=== PATIENT | female | born 1970 | race Caucasian/White ===

== ENCOUNTER → 2016-08-28 | Outpatient (CLI) | payer BC ==
--- NOTE | 2016-08-28 17:00 | RADRPT ---
PROCEDURE: Right knee radiographs. CLINICAL INDICATION: Right knee pain. TECHNIQUE: Three views. Weight bearing. Frontal, lateral, and patellar view. COMPARISON: No prior studies are available for comparison. FINDINGS: There is no fracture or dislocation. There is a joint effusion. There are degenerative changes with osteophytes arising from all 3 joint compartment margins. There is medial joint compartment narrowing and subarticular sclerosis. There is no lytic or blastic lesion. There is no radiopaque foreign body. IMPRESSION: 1. Joint effusion. 2. Moderate degenerative changes of the right knee. RPTAT: QQ .Boris Adorno MD, MD Date Time Electronically viewed and signed by .Boris Adorno MD, on 08/28/2016 16:59 .R/
--- NOTE | 2016-08-29 07:25 | HKNOTE ---
DATE OF SERVICE: 08/28/2016 MAIN COMPLAINT: Pain in the right knee. HISTORY OF MAIN COMPLAINT: The patient is a 46-year-old female who complains of pain in her right k nee. She has had the pain for more than a year. The pain has become increasingly severe. She is n ot able to walk more than a block or two without stopping. Two years ago, she was able to do a "5K. " The patient gets pain with every step that she takes. She was under the care of Dr. Ayleen Watts w brenda recommended a knee replacement operation. Indeed, the patient was scheduled to have a right knee replacement, but her PPO refused to allow her to have the surgery at the [facility]. She was given a list of orthopedic surgeons who work out of the [facility] and she has selected me. She has also seen my website. The patient has had 2 sets of viscous supplemental injections into her knee. She has declined to [place] ve cortisone injections. 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 It is described as being severe, is aggravated by walking, weightbearing or stair climbing. She gets some rest pain. Pain d oes not wake her up at night. She takes Anaprox and tramadol for the pain which "doesn't do much fo r me anymore." She has had a history of problems with her lower back. She had surgery to the lumba r spine as an outpatient about 1 year ago. She lost all sensation in her right leg as a result of t he surgery. The pain in her right leg also never resolved completely. She does, however, consider the operation a success in view of the fact that she has much less pain now. The patient does limp all the time. She does not have a shoe lift. She can clip her toenails and t ie her shoelaces. PAST ORTHOPEDIC HISTORY: Spine surgery as an outpatient 1 year ago. PRIOR CORTISONE INTAKE: None. ALCOHOL INTAKE: None. OTHER JOINT PROBLEMS: None. BLOOD TESTS FOR ARTHRITIS: None. PRIOR INJURIES TO HIPS OR KNEES: None. 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 Epilepsy. 2. Hypothyroid. PAST SURGICAL HISTORY: 1. Lumbar spine surgery 1 year ago (? doctor). 2. Partial gastrectomy 3 years ago for morbid obesity (the patient regained the weight). ALLERGIES: NONE. MEDICATIONS: 1. Tegretol 200 mg t.i.d. 2. Protonix 40 mg q. a.m. 3. Levothyroxine 112 mcg q. a.m. 4. Trintellix 20 mg daily for depression. 5. Seroquel 200 mg at bedtime for depression and sleep. 6. Prometrium 100 mg at bedtime for premenopausal symptoms. 7. Vitamin D 50,000 units a month. 8. Ativan 1 mg q. a.m. for anxiety. FAMILY HISTORY: Father age 64, alive and well. Mother at the age of 28, unstated cause. SYSTEMS REVIEW: Prone to severe headaches, failing vision, heartburn, occasional double vision, gai t disturbance from her knee pain. HABITS: Patient does not smoke or drink alcoholic beverages. TRAFFIC CIRCUIT ENGINEER: Dr. Pam Alegre, [place], [place]. PHYSICAL EXAMINATION: GENERAL: The patient is a youthful 46-year-old female who is markedly overweight. She has an antal gic gait, but she does not have a walking aid. VITAL SIGNS: Height 5 feet 2 inches, weight 250 pounds (patient states "probably more"). Blood pre ssure 130/60, temperature 98.7. BACK: Dynamic pain assessment reveals a pain free range of motion in flexion, extension, lateral be nding, and rotation. Inspection of the spine reveals no list. There is @@no lumbar paraspinal muscle spasm. The pelvis is level. Facet stress test is negative bilaterally. Palpation of the spine demon strates no tenderness of the spinous processes, facet joints, sacroiliac joint, sciatic notch, or po sterior thigh. HIPS: Both hips have a full range of motion without pain. RIGHT KNEE: The right knee shows normal alignment. Active and passive extension is 0 degrees. Flexi on lacks 25 degrees (marked pain on attempting further flexion) of the knee and the patella. T he medial and lateral collateral ligaments and cruciate ligaments are intact. Tereso test is negati ve. There is no effusion, tenderness, scarring, crepitus, or cysts. The patella tracks normally. The re is no tenderness on the articular surface of the patella or in the patellar groove. The Q angle i s normal. NEUROLOGIC: Motor examination reveals no muscle deficit in the lower extremities. Deep tendon refl exes are negative right knee, negative left knee, negative right ankle, negative left ankle. Straig ht leg raising is negative bilaterally at 80 degrees. Lasegue and CONNIE tests are negative. IMAGING: Plain x-rays of the right knee obtained today show marked narrowing of both medial and lat eral joint spaces. Patellofemoral joint is also markedly decreased. Osteophytes are present and burr bchondral sclerosis. DIAGNOSES: 1. Severe degenerative osteoarthritis of the right knee. 2. Epilepsy. 3. Morbid obesity. 4. Hypothyroid. 5. Status post lumbar spine surgery. 6. Residual pain in the right leg following spine surgery. MANAGEMENT: Patient comes in with a letter from Dr. Watts which appears to be his clinic notes for 07/19/2016. He indicates that the patient is impossible to fit for a knee brace, has grinding pain with range of motion of the right knee and "will be on the schedule for total knee arthroplasty in a couple of months." The operation of total knee replacement was discussed with the patient in a fair amount of detail in cluding showing her a model of the actual knee implants. The patient was given my manual titled "Arthritis of the Knee Joint" which contains information conc erning the various alternatives of treatment. It includes various forms of conservative treatment, i ncluding the use of nonsteroidal anti-inflammatory medications and their dangers. Various surgical a lternatives are discussed. The technique of total knee replacement is discussed in detail, including possible complications. Included also is a section on the possible complications of blood transfusi on, a section on postoperative precautions, and an exercise program to follow at home after total kn ee replacement. The long-term care of a total knee replacement implant is also covered in detail. Th e patient was instructed to read this manual in its entirety since it is, in and of itself, a form o f informed consent. After reading this manual, the patient will make a list of further questions inocencio t may not have been covered adequately. The patient was further advised that this manual, although e xhaustive in nature, is only intended to supplement and complement a one-on-one discussion with me. Patient has seen my website, [employer]. FINAL DIAGNOSES: 1. Severe degenerative osteoarthritis of the right knee. 2. Epilepsy. 3. Morbid obesity. 4. Hypothyroid. 5. Status post lumbar spine surgery. 6. Residual pain in the right leg following spine surgery. The patient will schedule her surgery with my seed analysis laboratory assistant, which will be performed in the relatively n ear future. Dictated By: CELESTE THOMAS/JUAN Conf#: [id number] DID#: [id number]
== END | disposition home or self-care (01) ==
LOC: HKI 15:52
DX: M17.11 Unilateral primary osteoarthritis, right knee (principal); G40.909 Epilepsy, unspecified, not intractable, without status epilepticus; E66.01 Morbid (severe) obesity due to excess calories; E03.9 Hypothyroidism, unspecified
CPT/HCPCS: 73562; G0463

== ENCOUNTER → 2016-09-12 | Outpatient (CLI) | payer BC ==
--- NOTE | 2016-09-12 17:46 | HKNOTE ---
DATE OF SERVICE: 09/12/2016 The patient comes in for preoperative evaluation. She is scheduled to have a right total knee repla cement on 09/17/2016. She has been cleared for surgery by Dr. Damon Yepez. Her x-rays were again reviewed. These show advanced degenerative osteoarthritis of the right knee w ith no remaining articular space, although there is not [id number] contact or osteophyte formation . Examination the right knee today reveals extension to be full. Flexion is to 95 degrees. The patie nt complains of pain on forced flexion of the knee. The patient is not able to walk more than 1-1/2 blocks at a time without stopping. She has read my booklet on knee arthritis and knee replacement surgery. She has been cleared by Ayanna Alegre in Dr. Yepez's office. Note that she had spinal surgery 1 year ago. Before the spine surgery, she had n umbness in her right leg, particularly concentrated over the anterior aspect of the right knee. Aft er the surgery, the numbness was gone, but she now had pain in that same distribution. The patient also indicates that she is allergic to cheap jewelry and can only wear jewelry that is s olid gold. Under sterile conditions, the patient was given an injection of 2 mL of 2% lidocaine into her right knee. Thereupon, she had absolutely no pain in the knee even on forceful flexion and the range of m otion improved to a point where flexion was to 120 degrees. MANAGEMENT: The patient is advised that she has a small chance that she may be allergic to the meta l components of the implant. There is not very much that we can do about that. She was offered the opportunity to cancel surgery. She was also warned that she may continue to have pain over the ant erior aspect of the right knee after the surgery since that pain seems in some way to be related to her spine surgery. The patient understands all this and she would like to proceed with the operatio n. She has not given any blood for autotransfusion. She understands the risks associated with usin g hospital blood. She is agreeable to using hospital blood if needed. She has read my booklet on k nee arthritis and knee replacement surgery. Dictated By: CELESTE THOMAS/JUAN Conf#: [id number] [facility]#: [id number]
== END | disposition home or self-care (01) ==
LOC: HKI 13:29
DX: Z01.818 Encounter for other preprocedural examination (principal)
CPT/HCPCS: G0463

== ENCOUNTER 2016-09-17 05:28 | Inpatient (IN) | payer BC, OTHER ==
[2016-09-16 09:56] VITALS: BMI 46.0
[2016-09-17] VITALS (17 sets, daily range): BP systolic 106–149; BP diastolic 56–85; PULSE 67–88; RESP 16–20; Ht 157.5 cm; Wt 120.0 kg
[~2016-09-17] VITALS: Ht 157.5 cm; Wt 120.0 kg
[2016-09-17] MEDS ORDERED: GLYCOPYRROLATE 0.4 MG INJ ONE (06:18)
[2016-09-17] MEDS ORDERED: ROCURONIUM 50 MG INJ ONE (06:18)
[2016-09-17] MEDS ORDERED: MIDAZOLAM 1 MG/ML 2 ML INJ ONE (06:18)
[2016-09-17] MEDS ORDERED: PROPOFOL 20 ML ONE (06:18)
[2016-09-17] MEDS ORDERED: NEOSTIGMINE 3 MG/3 ML SYRINGE ONE (06:18)
[2016-09-17] MEDS ORDERED: LIDOCAINE 2%/EPI 30 ML INJ ONE (06:18)
[2016-09-17] MEDS ORDERED: FENTAnyl 50 MCG/ML VIAL ONE (06:18)
[2016-09-17] MEDS ORDERED: LIDOCAINE 2% (SDV) 5 ML INJ ONE (06:18)
[2016-09-17] MEDS ORDERED: DEXAMETHASONE 4 MG/ML 1 ML INJ ONE (06:19)
[2016-09-17] MEDS ORDERED: ONDANSETRON 4 MG INJ ONE (06:20)
[2016-09-17] MEDS ORDERED: MIDAZOLAM 1 MG/ML 2 ML INJ IV PRN ×2 (06:30→12:30)
[2016-09-17] MEDS ORDERED: ONDANSETRON 4 MG INJ IV ONE (06:30)
[2016-09-17] MEDS ORDERED: OXYCODONE/ACETAMINOPHEN (5/325) TAB PO PRN ×4 (06:30→12:30)
[2016-09-17] MEDS ORDERED: DEXAMETHASONE 4 MG/ML 1 ML INJ IV ONE (06:30)
[2016-09-17] MEDS ORDERED: ATROPINE 1 MG/10 ML SYRINGE IV PRN ×2 (06:30→12:30)
[2016-09-17] MEDS ORDERED: morphine (1 MG/ML) 10ML SYRINGE IV PRN ×6 (06:30→12:30)
[2016-09-17] MEDS ORDERED: VANCOMYCIN 1 GM (PMX) 250 ML IVPB ONE (06:30)
[2016-09-17] MEDS ORDERED: oxyCODONE (CR) 10 MG TAB [oxyCONTIN] PO ONE (06:30)
[2016-09-17] MEDS ORDERED: TRANEXAMIC ACID 2,000 MG in SOD CHLORIDE 0.9% 100 ML IVPB ONE (06:30)
[2016-09-17] MEDS ORDERED: EPHEDrine SULFATE 50 MG/5 ML SYG IV PRN ×2 (06:30→12:30)
[2016-09-17] MEDS ORDERED: FENTAnyl 50 MCG/ML VIAL IV PRN ×4 (06:30→12:30)
[2016-09-17] MEDS ORDERED: LABETALOL HCL 20MG INJ IV PRN ×2 (06:30→12:30)
[2016-09-17] MEDS: SOD CHLORIDE 0.9% 50 ML, TRANEXAMIC ACID 2,000 MG IRR SCH ×4 (06:30→08:59)
[2016-09-17] MEDS ORDERED: LACTATED RINGER'S 1,000 ML IV* SCH (06:30)
[2016-09-17] MEDS ORDERED: LANSOPRAZOLE 30 MG CAP PO ONE (06:30)
[2016-09-17] MEDS ORDERED: HYDROmorphONE (0.2 MG/ML) 10ML SYG IV PRN ×6 (06:30→12:30)
[2016-09-17] MEDS ORDERED: hydrALAzine 20 MG INJ IV PRN ×2 (06:30→12:30)
[2016-09-17] MEDS ORDERED: CELECOXIB 200 MG CAP PO ONE (06:30)
[2016-09-17] MEDS ORDERED: MEPERIDINE 25 MG INJ IV PRN (06:30)
[2016-09-17] MEDS ORDERED: ACETAMINOPHEN 1000MG/100ML IV 100 ML IVPB ONE (06:30)
[2016-09-17] MEDS ORDERED: ONDANSETRON 4 MG INJ IV PRN ×2 (06:30→12:30)
[2016-09-17] MEDS ORDERED: DIPHENHYDRAMINE 50 MG INJ IV PRN ×2 (06:30→12:30)
--- NOTE | 2016-09-17 06:43 | HPN ---
Date/Time of Note Date/Time of Note DATE: 09/17/16 TIME: 06:43 Interval H&P Admission Note Pt. seen H&P reviewed: No system changes EFE SWANSON PA-C Sep 17, 2016 06:43
[2016-09-17] MEDS ORDERED: BACITRACIN 50000 UNITS INJ ONE (06:48)
[2016-09-17] MEDS ORDERED: SUCCINYLCHOLINE CHLORIDE 100 MG/5 ML SYG IV ONE (07:00)
[2016-09-17] MEDS ORDERED: BUPIVACAINE 0.25%/EPI (SDV) 30 ML INJ ONE (07:03)
[2016-09-17] MEDS ORDERED: VANCOMYCIN 1 GM INJ ONE (07:04)
[2016-09-17] MEDS ORDERED: TOBRAMYCIN 1.2 GM POWDER ONE ×2 (07:04→10:04)
[2016-09-17] MEDS ORDERED: ROPIVACAINE 0.2% 100 ML ONE (07:04)
[2016-09-17] MEDS ORDERED: POLYMYXIN B 500000 UNIT INJ ONE (07:04)
[2016-09-17] MEDS ORDERED: METHYLENE BLUE 10 MG/ML VIAL ONE (07:04)
[2016-09-17] MEDS ORDERED: SYN112 PO (07:23)
[2016-09-17] MEDS ORDERED: CARB100T2 PO (07:23)
[2016-09-17] MEDS ORDERED: ESZO3TAB12 PO (07:23)
[2016-09-17] MEDS ORDERED: PROG100C3 (07:23)
[2016-09-17] MEDS ORDERED: QUET200T4 PO (07:23)
[2016-09-17] MEDS ORDERED: LORA1TAB PO (07:23)
[2016-09-17] MEDS ORDERED: PANT40TA3 PO (07:23)
[2016-09-17] MEDS ORDERED: CHOL500051 PO (08:47)
[2016-09-17] MEDS ORDERED: ROPIVACAINE 0.2% 100ML BAG INJ ONE (08:56)
[2016-09-17] MEDS ORDERED: VORT20TA PO (09:04)
[2016-09-17] MEDS ORDERED: PREN1TAB38 PO (09:04)
[2016-09-17] MEDS ORDERED: FUROSEMIDE 20 MG INJ ONE (09:29)
--- NOTE | 2016-09-17 10:45 | RADRPT ---
PROCEDURE: XR right knee. CLINICAL INDICATION: Knee pain/knee replacement. TECHNIQUE: Lateral view available for review. COMPARISON: No comparison available FINDINGS: There is a total knee replacement. Positioning hardware is also present. There is no evidence of loo sening of the prosthesis. The osseous structures are normal in mineralization, architecture and alig nment No acute fracture or dislocation is seen.No osseous lesions are identified. The soft tissues are unremarkable . IMPRESSION: Unremarkable lateral view of the total knee replacement. RPTAT: HGDB .Huber Baca MD, MD Date Time Electronically viewed and signed by .Huber Baca MD, on 09/17/2016 10:44 .B/
[2016-09-17] MEDS ORDERED: oxyCODONE 5 MG TAB PO PRN ×4 (11:30→15:00)
[2016-09-17] MEDS ORDERED: BETHANECHOL 25 MG TAB PO PRN (11:30)
[2016-09-17] MEDS ORDERED: MEPERIDINE 10 MG/ML 30 ML PCA IV PRN (11:30)
[2016-09-17] MEDS ORDERED: MAGNESIUM HYDROXIDE 30ML CUP PO PRN (11:30)
[2016-09-17] MEDS ORDERED: DIPHENHYDRAMINE 50 MG INJ IM PRN (11:30)
[2016-09-17] MEDS ORDERED: ASPIRIN (EC) 325 MG TAB PO ONE (11:30)
[2016-09-17] MEDS ORDERED: COUMADIN NOTE XX SCH (11:30)
[2016-09-17] MEDS ORDERED: DOCUSATE SODIUM 100 MG CAP PO ONE (11:30)
[2016-09-17] MEDS ORDERED: SOD CHLORIDE 0.9% IVPB ONE ×2 (11:30→18:00)
[2016-09-17] MEDS ORDERED: NA PHOSPHATE/BIPHOS 133 ML ENEMA PR PRN (11:30)
[2016-09-17] MEDS ORDERED: HYDROmorphONE 0.2 MG/ML PCA IV PRN (11:30)
[2016-09-17] MEDS ORDERED: ZOLPIDEM 5 MG TAB PO PRN (11:30)
[2016-09-17] MEDS ORDERED: NALOXONE (0.4 MG/ML) INJ IV PRN (11:30)
[2016-09-17] MEDS ORDERED: TRANEXAMIC ACID IVPB ONE ×2 (11:30→18:00)
[2016-09-17] MEDS ORDERED: BISACODYL 10 MG SUPP PR PRN (11:30)
--- NOTE | 2016-09-17 11:46 | RADRPT ---
PROCEDURE: Intraoperative imaging of the right knee with fluoroscopy. CLINICAL INDICATION: Right knee pain. Intraoperative. TECHNIQUE: 3 images of the right knee were obtained in the operating room with an image intensifie r. No radiologist was in attendance. 8.2 seconds of fluoroscopy time was used. COMPARISON: 08/28/2016. FINDINGS: Images demonstrate components of the right knee arthroplasty. IMPRESSION: 1. Intraoperative imaging of the right knee. RPTAT: QQ .Boris Adorno MD, MD Date Time Electronically viewed and signed by .Boris Adorno MD, MD on 09/17/2016 11:45 .R/
[2016-09-17] MEDS: ACETAMINOPHEN 1000MG/100ML IV 100 ML IVPB SCH ×2 (12:07→19:48)
[2016-09-17] MEDS: CEFAZOLIN 1 GM/50 ML (PMX) 50 ML IVPB SCH ×2 (12:12→20:13)
--- NOTE | 2016-09-17 12:29 | RADRPT ---
PROCEDURE: XR Knee. CLINICAL INDICATION: Right knee pain TECHNIQUE: 2 images of the right knee are available for review. COMPARISON: None available FINDINGS: There is evidence of a recent constrained right knee total arthroplasty in anatomic alignment. Ther e is anterior soft tissue swelling and soft tissue gas with skin daisy. There is no acute fractur e. IMPRESSION: Recent right knee total arthroplasty as above RPTAT: UU .Isaías Flores MD, MD Date Time Electronically viewed and signed by .Isaías Flores MD, MD on 09/17/2016 12:29 .K/
[2016-09-17] MEDS: ONDANSETRON 4 MG INJ IV SCH ×2 (12:30→18:33)
--- NOTE | 2016-09-17 12:42 | OPR ---
DATE OF OPERATION: 09/17/2016 SURGEON: Herbert. Geovany MD PATHOLOGY TECHNICIAN: Yoni Grajeda PA-C ANESTHESIOLOGIST: Rafi Walton MD PREOPERATIVE DIAGNOSIS: Exceedingly severe degenerative osteoarthritis of the right knee. POSTOPERATIVE DIAGNOSIS: Exceedingly severe degenerative osteoarthritis of the right knee. OPERATION PERFORMED: Right total knee replacement (arthroplasty of the knee, condylar plateau media l and lateral compartments with patella resurfacing, CPT 07120). FINDINGS AT SURGERY: FINDINGS AT SURGERY: The patient was found to have exceedingly severe degener ative osteoarthritis affecting all 3 compartments of the knee. The medial compartment was most denny rely affected. The periphery of the distal femur had large osteophytes around its entire periphery including medial and lateral. The intercondylar notch had huge osteophytes which were removed. Now here was there any normal articular cartilage. The articular cartilage on the medial femoral condyl e was particularly severely eroded. The tibial plateau on the medial side was even worse. The patie nt's bone quality was good. JUSTIFICATION FOR SURGERY: The knee was found to have end-stage osteoarthritis. The patient is a v isabel active 46-year-old female whose lifestyle is markedly affected by the arthritic knee. An extens dudley course of conservative care has been tried prior to embarking on the knee replacement operation. There can be no reasonable expectation that any further conservative treatment will make any impro vement to this patient's pain level and lifestyle. The risks and complications of the surgery were discussed with the patient at the preoperative visit as well as the risks and possible complications of blood transfusion using hospital blood. The patient is agreeable to using hospital blood if nee ded. When the patient was seen in my office for preoperative evaluation on , she told me for the first time that when she had her back surgery about a year ago, she had pain over the lateral a spect of the knee and that it became worse after the surgery. In order to determine whether her suleman n is coming mostly from her back or from her knee, I put 5 mL of 2% lidocaine into the knee joint an d it eliminated all the pain and it was telling me that her knee was the main problem. We were ther efore agreeable to proceeding with knee replacement surgery. Intraoperative photographs were taken today which are included in the chart and they show severe degenerative changes. DESCRIPTION OF PROCEDURE: The patient was given intravenous antibiotics 1 hour prior to surgery. A n epidural anesthetic was initiated in the ICU holding area. The patient was taken to the operating room and given a light general anesthetic. The leg, foot, and ankle were prepared and draped in th e usual sterile fashion. The center of the ankle was marked at the midpoint between the 2 malleoli with a sterile marking pen. A tourniquet around the thigh was inflated to 250 mmHg after the leg neville d been exsanguinated using an Esmarch bandage. The tourniquet was inflated at the initiation of pro cedure for a short period and was then again reinflated at the time of cementing the components part s. The total tourniquet time was 56 minutes. A longitudinal incision was made over the anterior aspect of the knee. The incision extended from t he tibial tubercle to a point just above the patella. The medial capsule was exposed by sharp and lux forrestt dissection, and was incised 1/4 inch medial to the patella. A marking stitch was set on each s sydney of the incision at the midpoint of the capsule so as to enable accurate reapproximation at the e nd of the operation. A vastus split was made in the vastus medialis extending from the superior leandro e of the patella for approximately 5 cm between the line with the muscle fibers. The ends of the mu scle split at the patella were marked with a marking stitch on each side for later accurate reapprox imation. The patella was reflected laterally and osteophytes around the rim of the patella were rem tiffanie. Osteophytes along the lateral femoral condyle were removed so as to facilitate lateral reflec tion of the patella. Posteromedial osteophytes were removed on the lateral side as well, so as to f ree up the lateral collateral ligament. Medial femoral osteophytes and posteromedial femoral osteop hytes were also removed at this time. This allowed for the knee to be brought into a more normal al ignment. A segment of bone was cut from the articular surface of the patella using a caliper to det ermine the exact thickness to be removed. The remaining thickness of the patella was 16 mm. The kn ee was flexed, and the patella was displaced laterally without eversion. Osteophytes in the femoral notch were removed. The remnants of the medial and lateral menisci were excised and the cruciate l igaments were excised. The medial collateral ligament was elevated as an osteo-periosteal flap from the proximal tibia. The distal end of the medial collateral ligament remained attached to the tibi a throughout the operation. The tibia was retracted forward with Hohmann retractor, inserted energy and sustainability manager ior to the midpoint of the proximal tibia. The tibial jig was set in place in such a way as to alig n longitudinally with the anterior tibial spine, with the junction of the middle and medial 2/3 of t he patella tendon, and with the posterior intercondylar eminence of the tibia. An AP and lateral x- ray was obtained with a [address]. This showed that the knee was in slight hyperextensi on. The 12.5 mm insert was therefore tried and with it in place, the patient's knee was completely stable and had an excellent range of motion. This showed that the alignment was satisfactory after some slight adjustments were made. The posterior slope of the tibia was set at 6.5 degrees. The ti bial cutting block was attached to the proximal tibia with 2 Steinmann pins. An external alignment yesica was placed on the cutting block to confirm the alignment of the cutting block. An Humberto Wing fe eler gauge was now placed on the superior aspect of the cutting block to further confirm the posteri or slope of the tibia and the depth of the cut to be made. An oscillating saw was used to remove an appropriate amount of bone from the proximal tibia with the healthy side being used to measure the cutting depth. The lateral femoral condyle of the distal femur was measured to determine the approp riate size for the femoral component. The anterior condyle of the femur was partially removed with a rongeur. A medium-sized cutting block was attached to the distal femur with 2 Steinmann pins thro ugh the pin holes in the block. The external alignment jig of this cutting block was lined up with the anterior surface of the femur and a central intercondylar hole for the intramedullary yesica was dr illed through the hole in the alignment block. The block was removed. A long Waterpik nozzle was u sed to flush fat from the intramedullary canal. The appropriately sized cutting block was now attac hed to the femur by means of an intramedullary yesica. The linking guide was inserted into the slot in the base of the femoral cutting block with the knee set at 90 degrees of flexion and with the linki ng guide set flush with the proximal tibial cut in order to set the appropriate rotational alignment on the femoral cutting block. Ligament balance was checked at this point and was found to be very satisfactory. Once the rotational alignment had been determined, and the ligaments found to be gabriele nced, the femoral cutting block was secured to the distal femur with 2 Steinmann pins. The anterior and posterior cuts of the distal femur were made off the femoral cutting block. The cutting block was removed and a spacer block was used to measure the flexion gap which was found to be ____ mm. The same spacer block size without the femoral element was used with the leg in extension to determi ne the amount of distal femur to be removed in the transverse plane. A 5-degree distal cutting bloc k was now set on the femoral intramedullary yesica, and the yesica was inserted into the intramedullary ca nal. The appropriate amount of bone to be removed was determined. The femoral cutting block was pi nned to the anterior surface of the femur with 2 Steinmann pins. The appropriate amount of bone was resected off the distal femur to give an extension gap equal to the thickness of the flexion gap. The cut needed to be repeated after initial cut in order to produce an extension gap the same size a s the flexion gap. By using the appropriate cutting blocks, the rest of the femoral cuts were made. The femoral trial component was installed and was found to fit perfectly. The femoral trial component was removed. T he proximal tibia was sized, and the appropriate tibial tray selected. The central fixation hole in the tibia was made using the tibial tray template and the appropriate instruments. The femoral and tibial trials and the trial tibial insert were installed, and the patella was prepared to accept th e 32 mm dome component. The trial components were all removed. The tourniquet was inflated. Soft tissues around the knee, especially the posterior capsule, were injected with a mixture of Naropin, Toradol, morphine, and clonidine. The cut surfaces of the bones were cleaned with pulsatile Water J et lavage and thoroughly dried. Sclerotic bone surfaces were drilled with a 1/8-inch drill. The ti bial trial component was installed with methyl methacrylate cement followed by the femoral component and finally the patellar component. Cement was used on all 3 components. The cement was finger pa cked into the cut surfaces of the bone and pressurized with a rubber dam in order to get good interd igitation of the cement into the bone. A lateral x-ray of the knee was obtained while the cement wa s hardening with the anticipated appropriate spacer trial in place. Once the cement was hard, all e xtraneous cement was removed. The cut edges of the medial capsule were held together at the midpoin t with a towel clip, and the knee was put through a full range of motion. The patella was found to track satisfactorily. At this point, the patella was found to track very well in the patellar groov e of the femoral component. The knee was frequently irrigated with normal saline containing antibiotics with pulsatile lavage th roughout the entire operation as a prophylactic measure against infection. Once the cement was hard , the tourniquet was released. Bleeding points were cauterized. The total tourniquet time was 56 m inutes. The patient's vital signs remained stable throughout the operation. The permanent rotating bearing was installed. Superficial and deep Hemovac drains were set in place . The wound was closed using interrupted Vicryl on the capsule with FiberWire used at strategic poi nts such as the attachment of the distal ends of the vastus medialis at the split, and the tibial te ndon was also attached to the osteo-periosteal flap with FiberWire. The rest of the medial capsule was closed with interrupted Vicryl. A subcuticular stitch was inserted and daisy were used on the skin. The usual sterile dressings were applied. A Mike-Metzger compression dressing was applied a fter a sterile cooling pad had been set in place against the deep tissues by sterile cast padding. The patient's condition at the end of the procedure was satisfactory. Vital signs remained stable t hroughout the operation. The patient returned to the recovery room in stable condition. X-rays wer e obtained in the recovery room. Calf pumps were applied to both legs in the operating room. There were no problems or complications as far as we know. The sponge and instrument counts were correct . COMPONENT INFORMATION: KNEE IMPLANT TYPE: LCS. FEMORAL COMPONENT SIZE: Medium. TIBIAL COMPONENT SIZE: #2.5. PATELLAR COMPONENT SIZE: 32 mm dome. TIBIAL INSERT: 12.5 mm deep-dish posterior stabilized mobile bearing.. IMPLANT INSOLE BUFFER: [employer] [place], [place]. TOTAL TOURNIQUET TIME: 56 minutes. TOTAL BLOOD LOSS: 150 mL. Dictated By: CELESTE THOMAS/JUAN Conf#: [id number] DID#: [id number]
[2016-09-17] MEDS ORDERED: LORAZEPAM 1 MG TAB PO PRN (13:00)
--- NOTE | 2016-09-17 13:09 | CONS ---
DATE OF ADMISSION: 09/17/2016 DATE OF CONSULTATION: 09/17/2016 POSTOP MEDICAL CONSULTATIVE NOTE: Dear Dr. Armenta: Thank you very much for allowing me to evaluate this 46-year-old female who just underwent total rig ht knee replacement. HISTORICAL EVENTS: As you well know, this patient has had progressive disabling pain involving the right knee and elected to proceed with surgical intervention. Postoperatively, in recovery, she den ies cough, shortness of breath, chest pain. No nausea, vomiting, or abdominal pain and has minimal right knee discomfort. PAST MEDICAL HISTORY: 1. Lumbar diskectomy. 2. Cholecystectomy. 3. History of depression. 4. GERD. 5. Hypothyroidism. 6. Partial gastrectomy for morbid obesity. 7. Epilepsy. MEDICATIONS: 1. Tegretol 200 mg t.i.d. 2. Protonix 40 a.m. 3. Levothyroxine 112 mcg per day. 4. Trintellix 20 mg per day. 5. Seroquel 200 mg per day. 6. Prometrium 100 mg per day. 7. Vitamin D 50,000 units monthly. 8. Ativan 1 mg q.a.m. for anxiety. FAMILY HISTORY: Noncontributory. SOCIAL HISTORY: She does not drink or smoke. PHYSICAL EXAMINATION: GENERAL: Overweight female in no acute distress. VITAL SIGNS: BP 120/80, pulse 70, respirations are 20, she was afebrile. EYES: Extraocular muscles were full. NOSE, MOUTH, AND THROAT: Normal. NECK: Supple. There was no jugular venous distention, thyroid enlargement or adenopathy. Carotids 2+. LUNGS: Clear. HEART: Rhythm regular. ABDOMEN: Obese. Liver and spleen were not palpable. EXTREMITIES: The right was bandaged. Left revealed no edema. IMPRESSION: 1. Stable postop right knee. 2. History of hypothyroidism. Will continue thyroid replacement. 3. History of gastroesophageal reflux disease. PPI will be continued. 4. Will evaluate daily for signs and symptoms of thromboembolic disease while getting appropriate D VT prophylaxis. Dictated By: SANDRA AZEVEDO/JUAN Conf#: [id number] DID#: [id number]
[2016-09-17] MEDS: DEXTROSE 5%-LR 1,000 ML IV SCH ×2 (15:49→23:49)
[2016-09-17] MEDS ORDERED: KNEE PAIN COCKTAIL VANCO INJ SCH ×6 (16:30)
[2016-09-17] MEDS: PANTOPRAZOLE (EC) 40 MG TAB PO SCH (18:33)
[2016-09-17] MEDS ORDERED: CARBAMAZEPINE 200 MG TAB PO SCH (21:00)
[2016-09-17] MEDS: PROGESTERONE 100 MG CAP PO SCH (21:19)
[2016-09-17] MEDS: oxyCODONE 5 MG TAB PO PRN (21:20)
[2016-09-17] MEDS: carBAMAZepine CHEW 100 MG CHEW PO SCH (22:03)
[2016-09-18] MEDS: ONDANSETRON 4 MG INJ IV SCH ×2 (00:10→06:10)
[2016-09-18 00:44] VITALS: BP 92/52; RESP 18
[2016-09-18] MEDS: CEFAZOLIN 1 GM/50 ML (PMX) 50 ML IVPB SCH (03:21)
[2016-09-18] MEDS: ACETAMINOPHEN 1000MG/100ML IV 100 ML IVPB SCH ×3 (03:23→19:30)
[2016-09-18 05:27] VITALS: BP 91/55; PULSE 67; RESP 18
[2016-09-18 05:30] LABS: BASOPHILS % 0.3 % (0.0-2.0); EOSINOPHILS % 0.7 % (0.0-7.0); HEMOGLOBIN 10.9 g/dl (12.0-16.0); LYMPHOCYTES # 1.6 10^3/ul (0.8-2.9); LYMPHOCYTES % 24.5 % (15.0-51.0); MEAN CORPUSCULAR HEMOGLOBIN 30.7 pg (29.0-33.0); MEAN CORPUSCULAR HGB CONC 33.9 g/dl (32.0-37.0); MEAN CORPUSCULAR VOLUME 90.5 fl (82.0-101.0); MONOCYTE # 0.6 10^3/ul (0.3-0.9); MONOCYTES % 8.8 % (0.0-11.0); NEUTROPHIL # 4.3 10^3/ul (1.6-7.5); NEUTROPHILS % 65.7 % (39.0-77.0); PLATELET COUNT 211 10^3/UL (140-440); RED BLOOD COUNT 3.54 10^6/ul (4.20-5.40); RED CELL DISTRIBUTION WIDTH 14.8 % (11.5-14.5); UNCORRECTED WBC 6.5 10^3/ul (4.8-10.8); WHITE BLOOD COUNT 6.5 10^3/ul (4.8-10.8)
[2016-09-18 05:34] LABS: CONDITION 1; LH ANALYZER COMMENTS 1
[2016-09-18] MEDS ORDERED: KETOROLAC 30 MG INJ INJ PRN (06:00)
[2016-09-18] MEDS ORDERED: BUPIVACAINE 0.25%/EPI (SDV) 30 ML INJ INJ PRN (06:00)
[2016-09-18] MEDS: LEVOTHYROXINE 112 MCG TAB PO SCH (06:10)
[2016-09-18] MEDS: DEXAMETHASONE 4 MG/ML 1 ML INJ IV SCH (06:10)
[2016-09-18] MEDS: PANTOPRAZOLE (EC) 40 MG TAB PO SCH ×2 (06:10→18:08)
[2016-09-18] MEDS: DEXTROSE 5%-LR 1,000 ML IV SCH (06:11)
[2016-09-18 07:57] VITALS: BP 92/53; RESP 20
--- NOTE | 2016-09-18 08:09 | PN ---
Date/Time of Note Date/Time of Note DATE: 09/18/16 TIME: 08:05 Assessment/Plan VTE Prophylaxis VTE Prophylaxis Intervention: ambulation, SCD's, other (Aspirin 325 mg twice daily.) Lines/Catheters IV Catheter Type (from Nrsg): Peripheral IV Assessment/Plan Assessment/Plan -Hemovac Removed Today. 240 cc output from Hemovac. -Pain Cocktail Given -Pain Meds as needed -Dress change performed today -OOB with PT -ASA/SCDs for DVT Prophylaxis -Continue monitoring with Internal Medicine -Patient Stable Subjective 24 Hr Interval Summary 46-year-old female postop day 1 status post right total knee arthroplasty. Since surgery, patient states that she is experiencing little to no pain complaints at rest. Had physical therapy yesterday where she experienced mild discomfort. Patient is doing well status post surgery denies any calf pain, shortness of breath or chest pain. Able to ambulate with assistance using a front wheeled walker. Had complaints that dressing was too tight as she felt her leg was falling asleep. Constitutional: ambulates Pain Control: well controlled Exam/Review of Systems Vital Signs Vitals Vital Signs Date Time Temp Pulse Resp B/P Pulse Ox O2 Delivery O2 Flow Rate FiO2 09/18/16 07:57 98.5 72 20 92/53 99 09/18/16 05:27 Nasal Cannula 2.0 Intake and Output 09/17/16 09/17/16 09/18/16 15:00 23:00 07:00 Intake Total 1000 ml 1220 ml 1530 ml Output Total 385 ml 1300 ml 2120 ml Balance 615 ml -80 ml -590 ml Exam Free Text/Dictation -Hemovac: Intact -Pain Cocktail Drains: Intact -Patient able to flex the knee up to 60-70. About 10 lag from full extension. -Incision: Clean, Dry and Intact without any redness or drainage -5/5 Tibialis Anterior, EHL Gastrocnemius/Soleus and Peroneals -Normal Sensation -Palpable DP/PT, Capillary Refill <2 secs -No Distal Edema -Negative Perla Sign/No calf pain -Toes Freely Movable Results Result Diagram: 09/18/16 0441 EFE SWANSON PA-C Sep 18, 2016 08:09
--- NOTE | 2016-09-18 08:53 | CONS ---
Date/Time of Note Date/Time of Note DATE: 09/18/16 TIME: 08:51 Assessment/Plan Assessment/Plan Additional Assessment/Plan 1. Stable postop right knee. 2. History of hypothyroidismt, on replacement 3. History of gastroesophageal reflux disease,asx Consultation Date/Type/Reason Admit Date/Time Sep 17, 2016 at 05:28 Initial Consult Date Detailed Summary Respiratory: No cough, No shortness of breath Cardiovascular: chest pain, edema, No lightheadedness Gastrointestinal: no complaints Genitourinary: other (swain in place) Musculoskeletal: bone/joint pain (midl lright knee pain) Exam/Review of Systems Vital Signs Vitals Vital Signs Date Time Temp Pulse Resp B/P Pulse Ox O2 Delivery O2 Flow Rate FiO2 09/18/16 07:57 98.5 72 20 92/53 99 09/18/16 05:27 Nasal Cannula 2.0 Intake and Output 09/17/16 09/17/16 09/18/16 15:00 23:00 07:00 Intake Total 1000 ml 1220 ml 1530 ml Output Total 385 ml 1300 ml 2120 ml Balance 615 ml -80 ml -590 ml Exam Neck: No jvd Respiratory: clear to auscultation Cardiovascular: regular rate and rhythm Gastrointestinal: soft Extremities: No edema (and no calf tend) Results Result Diagram: 09/18/16 0441 Results 24 hrs Laboratory Tests Test 09/18/16 04:41 Basophils # 0.0 Basophils % 0.3 Blood Morphology Comment Eosinophils # 0.0 Eosinophils % 0.7 Hematocrit 32.0 L Hemoglobin 10.9 L Lymphocytes # 1.6 Lymphocytes % 24.5 Mean Corpuscular Hemoglobin 30.7 Mean Corpuscular Hemoglobin Concent 33.9 Mean Corpuscular Volume 90.5 Mean Platelet Volume 8.0 Monocytes # 0.6 Monocytes % 8.8 Neutrophils # 4.3 Neutrophils % 65.7 Nucleated Red Blood Cells # 0.0 Nucleated Red Blood Cells % 0.0 Platelet Count 211 Red Blood Count 3.54 L Red Cell Distribution Width 14.8 H White Blood Count 6.5 Medications Medications Current Medications Dextrose/Lactated Ringer's (D5-Lr) 1,000 ml @ 80 mls/hr [id number] IV Last administered on 09/18/16t 06:11; Admin Dose 80 MLS/HR; Start 09/17/16 at 11:19 Hydromorphone HCl (Dilaudid PLASTER PATTERN CASTER) Q4PCA PRN IV SEVERE PAIN 8-10; Start at 11:30; Stop 09/18/16 at 11:29 Meperidine HCl Q4PCA PRN IV SEVERE PAIN 8-10; Start 09/17/16 at 11:30; Stop at 09:00 Acetaminophen (Ofirmev 1000mg/ 100ml Iv) 100 ml @ 400 mls/hr Q8H IVPB Last administered on 09/18/16t 03:23; Admin Dose 400 MLS/HR; Start 09/17/16 at 11:30 ; Stop 09/19/16 at 03:44 Zolpidem Tartrate (Ambien) 5 mg HS PRN PO INSOMNIA; Start 09/17/16 at 11:30 Miscellaneous Information (Note) NOTE XX ; Start 09/17/16 at 11:30 Aspirin (Ecotrin) 325 mg BID PO ; Start 09/18/16 at 09:00 Celecoxib (Celebrex) 200 mg BID PO ; Start 09/18/16 at 09:00 Dexamethasone (Decadron) 4 mg DAILY@07 IV Last administered on 09/18/16t 06:10 ; Admin Dose 4 MG; Start 09/18/16 at 07:00; Stop 09/21/16 at 06:59 Docusate Sodium/ Ferrous Fumarate (Esequiel-Sequels) 1 tab BID PO ; Start 09/18/16 at 09:00 Docusate Sodium (Colace) 200 mg BID PO ; Start 09/18/16 at 09:00; Stop 09/21/16 at 08:59 Simethicone (Mylicon) 80 mg TID PRN PO DISTENSION/GAS/BLOATING; Start 09/17/16 at 11:30 Senna/Docusate Sodium (Senokot-S) 2 tab BID PRN PO CONSTIPATION; Start at 11:30 Magnesium Hydroxide (Milk Of Mag) 30 ml HS PRN PO CONSTIPATION; Start 09/17/16 at 11:30 Bisacodyl (Dulcolax Supp) 10 mg DAILY PRN [place] CONSTIPATION; Start 09/17/16 at 11 :30 Sodium Biphosphate/ Sodium Phosphate (Fleet Enema) 133 ml DAILY PRN [place] CONSTIPATION; Start 09/17/16 at 11:30 Diphenhydramine HCl (Benadryl) 25 mg Q4H PRN IM ITCHING OR RASH; Start at 11:30 Ketorolac Tromethamine (Toradol) 30 mg DAILY@06 PRN INJ ADMINSTER BY SURGEON ONLY; Start 09/18/16 at 06:00; Stop 09/22/16 at 05:59 Bupivacaine HCl/ Epinephrine Bitart (Marcaine 0.25%/ Epi (Sdv) 30 ml) 20 ml DAILY@06 PRN INJ ADMINSTER BY SURGEON ONLY; Start 09/18/16 at 06:00; Stop 09/22 at 05:59 Naloxone HCl (Narcan) 0.2 mg Q2M PRN IV DECREASED REPIRATORY RATE; Start at 11:30 Pantoprazole (Protonix Tab) 40 mg BID@06,18 PO Last administered on 09/18/16 06:10; Admin Dose 40 MG; Start 09/17/16 at 18:00 Carbamazepine (Tegretol) 200 mg TID PO Last administered on 09/17/16 22:03; Admin Dose 200 MG; Start 09/17/16 at 21:00 Lorazepam (Ativan) 1 mg BID PRN PO ANXIETY Last administered on 09/18/16 00:39 ; Admin Dose 1 MG; Start 09/17/16 at 13:00 Progesterone (Prometrium) 100 mg HS PO Last administered on 09/17/16 21:19; Admin Dose 100 MG; Start 09/17/16 at 21:00 Oxycodone HCl (Roxicodone) 20 mg Q3H PRN PO PAIN LEVEL 8-10; Start 09/17/16 at 15:00 Oxycodone HCl (Roxicodone) 10 mg Q3H PRN PO PAIN LEVEL 4-7 Last administered on 09/17/16 21:20; Admin Dose 10 MG; Start 09/17/16 at 15:00 Oxycodone HCl (Roxicodone) 5 mg Q3H PRN PO PAIN LEVEL 1-3; Start 09/17/16 at 15 :00 SANDRA ALBARRAN MD Sep 18, 2016 08:53
[2016-09-18] MEDS: oxyCODONE 5 MG TAB PO PRN ×4 (09:17→20:54)
[2016-09-18] MEDS: DOCUSATE SODIUM 100 MG CAP PO SCH ×2 (09:18→21:00)
[2016-09-18] MEDS: ASPIRIN (EC) 325 MG TAB PO SCH ×2 (09:18→20:48)
[2016-09-18] MEDS: FERROUS FUMARATE (SR) TAB PO SCH ×2 (09:18→20:48)
[2016-09-18] MEDS: carBAMAZepine CHEW 100 MG CHEW PO SCH ×3 (09:18→20:49)
[2016-09-18] MEDS: CELECOXIB 200 MG CAP PO SCH ×2 (09:18→20:48)
[2016-09-18 11:38] LABS: POTASSIUM 4.2 mmol/L (3.5-5.1)
[2016-09-18 11:40] LABS: CREATININE 0.69 mg/dl (0.44-1.00)
[2016-09-18 11:41] LABS: CALCIUM 7.8 mg/dl (8.4-10.2)
[2016-09-18 19:09] LABS: ADD UMIC NO; URINE BILIRUBIN (Dip) NEGATIVE (NEGATIVE); URINE BLOOD (Dip) NEGATIVE (NEGATIVE); URINE COLOR LT. YELLOW (YELLOW); URINE GLUCOSE (Dip) NEGATIVE (NEGATIVE); URINE KETONES (Dip) NEGATIVE (NEGATIVE); URINE LEUKOCYTE ESTERASE (Dip) NEGATIVE (NEGATIVE); URINE NITRITE (Dip) NEGATIVE (NEGATIVE); URINE TOTAL PROTEIN (Dip) NEGATIVE (NEGATIVE); URINE UROBILINOGEN (Dip) 0.2 E.U./dL (0.1-1.0)
[2016-09-18 19:55] VITALS: BP 99/50; RESP 18
[2016-09-18] MEDS: PROGESTERONE 100 MG CAP PO SCH (20:49)
[2016-09-18] MEDS: SENNA/DOCUSATE NA (8.6MG/50MG) TAB PO PRN (20:49)
[2016-09-18] MEDS: QUETIAPINE 100 MG TAB PO SCH (21:10)
[2016-09-19] MEDS: DEXTROSE 5%-LR 1,000 ML IV SCH ×2 (00:49→13:19)
[2016-09-19] MEDS: oxyCODONE 5 MG TAB PO PRN ×6 (02:19→21:19)
[2016-09-19] MEDS: ACETAMINOPHEN 1000MG/100ML IV 100 ML IVPB SCH (03:30)
[2016-09-19 05:17] LABS: POTASSIUM 4.2 mmol/L (3.5-5.1)
[2016-09-19] MEDS: LEVOTHYROXINE 112 MCG TAB PO SCH (05:19)
[2016-09-19] MEDS: PANTOPRAZOLE (EC) 40 MG TAB PO SCH ×2 (05:19→18:01)
[2016-09-19] MEDS: DEXAMETHASONE 4 MG/ML 1 ML INJ IV SCH (05:19)
[2016-09-19 05:20] LABS: CREATININE 0.65 mg/dl (0.44-1.00)
[2016-09-19 05:21] LABS: CALCIUM 7.7 mg/dl (8.4-10.2)
[2016-09-19 05:34] LABS: BASOPHILS % 0.4 % (0.0-2.0); EOSINOPHILS # 0.1 10^3/ul (0.0-0.5); EOSINOPHILS % 1.3 % (0.0-7.0); HEMATOCRIT 33.4 % (37.0-47.0); HEMOGLOBIN 10.9 g/dl (12.0-16.0); LYMPHOCYTES # 1.6 10^3/ul (0.8-2.9); LYMPHOCYTES % 21.9 % (15.0-51.0); MEAN CORPUSCULAR HEMOGLOBIN 30.1 pg (29.0-33.0); MEAN CORPUSCULAR HGB CONC 32.8 g/dl (32.0-37.0); MONOCYTE # 0.5 10^3/ul (0.3-0.9); MONOCYTES % 7.4 % (0.0-11.0); NEUTROPHIL # 4.9 10^3/ul (1.6-7.5); PLATELET COUNT 212 10^3/UL (140-440); RED BLOOD COUNT 3.63 10^6/ul (4.20-5.40); RED CELL DISTRIBUTION WIDTH 15.2 % (11.5-14.5); UNCORRECTED WBC 7.1 10^3/ul (4.8-10.8); WHITE BLOOD COUNT 7.1 10^3/ul (4.8-10.8)
[2016-09-19 05:41] LABS: CONDITION 1; LH ANALYZER COMMENTS 1
[2016-09-19] MEDS ORDERED: PANTOPRAZOLE (EC) 40 MG TAB PO SCH (06:00)
--- NOTE | 2016-09-19 07:45 | PN ---
Date/Time of Note Date/Time of Note DATE: 09/19/16 TIME: 07:40 Assessment/Plan VTE Prophylaxis VTE Prophylaxis Intervention: ambulation, SCD's, other (Aspirin 325 mg twice daily) Lines/Catheters IV Catheter Type (from Nrsg): Saline [place] in Place (from Nrsg): No Assessment/Plan Assessment/Plan -Pain Cocktail Given -Pain Meds as needed -Dress change performed today -OOB with PT -ASA/SCDs for DVT Prophylaxis -Continue monitoring with Internal Medicine -Patient Stable -Plan to discharge home tomorrow with home health. -Lengthy discussion had with patient today and patient was advised to continue flexing the knee every hour to prevent increased scarring and stiffness to the knee. Also advised to continue attempts to fully extend the knee to prevent stiffness with extension. Patient states understanding and compliance. Subjective 24 Hr Interval Summary 46-year-old female postop day 2 status post right total knee replacement. Patient states that she had an episode of pain yesterday around a 7/10 on the pain scale to the right knee. Denies onset with physical therapy. Pain was while she was resting. Pain was controlled with pain medication. Denies any calf pain, shortness of breath or chest pain. Patient is up and out of bed and walking throughout hallways with physical therapy. Uses front wheeled walker for assisted ambulation. Pain Control: moderate (But controlled with pain medication) Exam/Review of Systems Vital Signs Vitals Vital Signs Date Time Temp Pulse Resp B/P Pulse Ox O2 Delivery O2 Flow Rate FiO2 09/18/16 19:55 98.1 75 18 99/50 98 09/18/16 05:27 Nasal Cannula 2.0 Intake and Output 09/18/16 09/18/16 09/19/16 15:00 23:00 07:00 Intake Total 1000 ml 1210 ml Output Total 1000 ml Balance 1000 ml 210 ml Exam Free Text/Dictation -Hemovac: Removed -Pain Cocktail Drains: Intact -Incision: Clean, Dry and Intact without any redness or drainage -4+/5 Tibialis Anterior, EHL Gastrocnemius/Soleus and Peroneals -Patient having stiffness to the knee. She is able to flex up to around 45 today. -Normal Sensation -Palpable DP/PT, Capillary Refill <2 secs -No Distal Edema -Negative Perla Sign/No calf pain -Toes Freely Movable Results Result Diagram: 09/19/16 0449 09/19/16 0449 EFE SWANSON PA-C Sep 19, 2016 07:45
[2016-09-19 07:49] VITALS: BP 102/58; RESP 19
[2016-09-19] MEDS: TRINTELLIX 20 MG PO SCH (08:58)
[2016-09-19] MEDS: DOCUSATE SODIUM 100 MG CAP PO SCH ×2 (08:59→20:44)
[2016-09-19] MEDS: ASPIRIN (EC) 325 MG TAB PO SCH ×2 (08:59→20:44)
[2016-09-19] MEDS: CELECOXIB 200 MG CAP PO SCH ×2 (08:59→20:44)
[2016-09-19] MEDS: carBAMAZepine CHEW 100 MG CHEW PO SCH ×3 (09:00→20:45)
[2016-09-19] MEDS: FERROUS FUMARATE (SR) TAB PO SCH ×2 (09:00→21:19)
--- NOTE | 2016-09-19 11:53 | CONS ---
Date/Time of Note Date/Time of Note DATE: 09/19/16 TIME: 11:52 Assessment/Plan Assessment/Plan Additional Assessment/Plan 1. Stable postop right knee, labs rev 2. History of hypothyroidism, on replacement 3. History of gastroesophageal reflux disease,asx Consultation Date/Type/Reason Admit Date/Time Sep 17, 2016 at 05:28 Detailed Summary Respiratory: No cough, No shortness of breath Cardiovascular: No chest pain, No lightheadedness Gastrointestinal: no complaints Genitourinary: no complaints Musculoskeletal: bone/joint pain (mild right knee pain) Exam/Review of Systems Vital Signs Vitals Vital Signs Date Time Temp Pulse Resp B/P Pulse Ox O2 Delivery O2 Flow Rate FiO2 09/19/16 07:49 98.3 60 19 102/58 97 09/18/16 05:27 Nasal Cannula 2.0 Intake and Output 09/18/16 09/18/16 09/19/16 15:00 23:00 07:00 Intake Total 1000 ml 1210 ml Output Total 1000 ml Balance 1000 ml 210 ml Exam Neck: No jvd Respiratory: clear to auscultation Cardiovascular: regular rate and rhythm Gastrointestinal: soft Extremities: No edema (and no calf tend bilat) Results Result Diagram: 09/19/16 0449 09/19/16 0449 Results 24 hrs Laboratory Tests Test 09/19/16 04:49 Anion Gap 10 Basophils # 0.0 Basophils % 0.4 Blood Morphology Comment Blood Urea Nitrogen 12 Calcium Level 7.7 L Carbon Dioxide Level 30 Chloride Level 107 Creatinine 0.65 Eosinophils # 0.1 Eosinophils % 1.3 Glucose Level 110 Hematocrit 33.4 L Hemoglobin 10.9 L Lymphocytes # 1.6 Lymphocytes % 21.9 Mean Corpuscular Hemoglobin 30.1 Mean Corpuscular Hemoglobin Concent 32.8 Mean Corpuscular Volume 92.0 Mean Platelet Volume 8.0 Monocytes # 0.5 Monocytes % 7.4 Neutrophils # 4.9 Neutrophils % 69.0 Nucleated Red Blood Cells # 0.0 Nucleated Red Blood Cells % 0.0 Platelet Count 212 Potassium Level 4.2 Red Blood Count 3.63 L Red Cell Distribution Width 15.2 H Sodium Level 143 White Blood Count 7.1 Medications Medications Current Medications Dextrose/Lactated Ringer's (D5-Lr) 1,000 ml @ 80 mls/hr [id number] IV Last administered on 09/18/16 06:11; Admin Dose 80 MLS/HR; Start 09/17/16 at 11:19 Zolpidem Tartrate (Ambien) 5 mg HS PRN PO INSOMNIA; Start 09/17/16 at 11:30 Miscellaneous Information (Note) NOTE XX ; Start 09/17/16 at 11:30 Aspirin (Ecotrin) 325 mg BID PO Last administered on 09/19/16 08:59; Admin Dose 325 MG; Start 09/18/16 at 09:00 Celecoxib (Celebrex) 200 mg BID PO Last administered on 09/19/16 08:59; Admin Dose 200 MG; Start 09/18/16 at 09:00 Dexamethasone (Decadron) 4 mg DAILY@07 IV Last administered on 09/19/16 05:19 ; Admin Dose 4 MG; Start 09/18/16 at 07:00; Stop 09/21/16 at 06:59 Docusate Sodium/ Ferrous Fumarate (Esequiel-Sequels) 1 tab BID PO Last administered on 09/19/16 09:00; Admin Dose 1 TAB; Start 09/18/16 at 09:00 Docusate Sodium (Colace) 200 mg BID PO Last administered on 09/19/16 08:59; Admin Dose 200 MG; Start 09/18/16 at 09:00; Stop 09/21/16 at 08:59 Simethicone (Mylicon) 80 mg TID PRN PO DISTENSION/GAS/BLOATING; Start 09/17/16 at 11:30 Senna/Docusate Sodium (Senokot-S) 2 tab BID PRN PO CONSTIPATION Last administered on 09/18/16 20:49; Admin Dose 2 TAB; Start 09/17/16 at 11:30 Magnesium Hydroxide (Milk Of Mag) 30 ml HS PRN PO CONSTIPATION; Start 09/17/16 at 11:30 Bisacodyl (Dulcolax Supp) 10 mg DAILY PRN [place] CONSTIPATION; Start 09/17/16 at 11 :30 Sodium Biphosphate/ Sodium Phosphate (Fleet Enema) 133 ml DAILY PRN [place] CONSTIPATION; Start 09/17/16 at 11:30 Diphenhydramine HCl (Benadryl) 25 mg Q4H PRN IM ITCHING OR RASH; Start at 11:30 Ketorolac Tromethamine (Toradol) 30 mg DAILY@06 PRN INJ ADMINSTER BY SURGEON ONLY; Start 09/18/16 at 06:00; Stop 09/22/16 at 05:59 Bupivacaine HCl/ Epinephrine Bitart (Marcaine 0.25%/ Epi (Sdv) 30 ml) 20 ml DAILY@06 PRN INJ ADMINSTER BY SURGEON ONLY; Start 09/18/16 at 06:00; Stop 09/22 at 05:59 Naloxone HCl (Narcan) 0.2 mg Q2M PRN IV DECREASED REPIRATORY RATE; Start at 11:30 Pantoprazole (Protonix Tab) 40 mg BID@06,18 PO Last administered on 09/19/16 05:19; Admin Dose 40 MG; Start 09/17/16 at 18:00 Carbamazepine (Tegretol) 200 mg TID PO Last administered on 09/19/16 09:00; Admin Dose 200 MG; Start 09/17/16 at 21:00 Lorazepam (Ativan) 1 mg BID PRN PO ANXIETY Last administered on 09/18/16 00:39 ; Admin Dose 1 MG; Start 09/17/16 at 13:00 Progesterone (Prometrium) 100 mg HS PO Last administered on 09/18/16 20:49; Admin Dose 100 MG; Start 09/17/16 at 21:00 Oxycodone HCl (Roxicodone) 20 mg Q3H PRN PO PAIN LEVEL 8-10 Last administered on 09/19/16 09:05; Admin Dose 20 MG; Start 09/17/16 at 15:00 Oxycodone HCl (Roxicodone) 10 mg Q3H PRN PO PAIN LEVEL 4-7 Last administered on 09/19/16 02:19; Admin Dose 10 MG; Start 09/17/16 at 15:00 Oxycodone HCl (Roxicodone) 5 mg Q3H PRN PO PAIN LEVEL 1-3; Start 09/17/16 at 15 :00 Quetiapine Fumarate (Seroquel) 200 mg HS PO Last administered on 09/18/16 21: 10; Admin Dose 200 MG; Start 09/18/16 at 21:00 Patient Own Medication 1 ea QAM PO Last administered on 09/19/16 08:58; Admin Dose 1 EA; Start 09/19/16 at 09:00 SANDRA ALBARRAN MD Sep 19, 2016 11:53
[2016-09-19 19:25] VITALS: BP 96/47; RESP 16
[2016-09-19] MEDS: PROGESTERONE 100 MG CAP PO SCH (20:43)
[2016-09-19] MEDS: QUETIAPINE 100 MG TAB PO SCH (20:45)
[2016-09-20] MEDS: DEXTROSE 5%-LR 1,000 ML IV SCH (01:49)
[2016-09-20] MEDS: oxyCODONE 5 MG TAB PO PRN ×3 (03:43→13:45)
[2016-09-20 05:23] LABS: ADD SCAN DIFF NO
[2016-09-20 05:33] LABS: BASOPHILS % 0.7 % (0.0-2.0); EOSINOPHILS # 0.1 10^3/ul (0.0-0.5); HEMATOCRIT 34.3 % (37.0-47.0); HEMOGLOBIN 10.7 g/dl (12.0-16.0); LYMPHOCYTES # 1.5 10^3/ul (0.8-2.9); LYMPHOCYTES % 34.1 % (15.0-51.0); MEAN CORPUSCULAR HEMOGLOBIN 30.1 pg (29.0-33.0); MEAN CORPUSCULAR HGB CONC 31.2 g/dl (32.0-37.0); MEAN CORPUSCULAR VOLUME 96.6 fl (82.0-101.0); MEAN PLATELET VOLUME 9.9 fl (7.4-10.4); MONOCYTE # 0.5 10^3/ul (0.3-0.9); MONOCYTES % 10.6 % (0.0-11.0); NEUTROPHIL # 2.2 10^3/ul (1.6-7.5); NEUTROPHILS % 51.4 % (39.0-77.0); PLATELET COUNT 196 10^3/UL (140-415); RED BLOOD COUNT 3.55 10^6/ul (4.20-5.40); RED CELL DISTRIBUTION WIDTH 14.4 % (11.5-14.5); WHITE BLOOD COUNT 4.3 10^3/ul (4.8-10.8)
[2016-09-20] MEDS: PANTOPRAZOLE (EC) 40 MG TAB PO SCH (06:08)
[2016-09-20] MEDS: LEVOTHYROXINE 112 MCG TAB PO SCH (06:08)
[2016-09-20] MEDS: DEXAMETHASONE 4 MG/ML 1 ML INJ IV SCH (06:08)
[2016-09-20] MEDS: SENNA/DOCUSATE NA (8.6MG/50MG) TAB PO PRN (06:10)
[2016-09-20 07:00] VITALS: BP 142/70; RESP 18
--- NOTE | 2016-09-20 07:44 | PN ---
Date/Time of Note Date/Time of Note DATE: 09/20/16 TIME: 07:38 Assessment/Plan VTE Prophylaxis VTE Prophylaxis Intervention: ambulation, SCD's, other (Aspirin 325 mg twice daily.) Lines/Catheters IV Catheter Type (from Nrsg): Saline [place] in Place (from Nrsg): No Assessment/Plan Assessment/Plan -Pain Cocktail Given and cocktail drains removed. -Pain Meds as needed -Dress change performed today -ASA for DVT Prophylaxis x 6 weeks outpatient discussed. -Continue monitoring as outpatient on discharge -Follow-up at scheduled postop outpatient appointment or sooner if there is any issue. -Tegaderm dressings given with specific instructions to use as outpatient to keep wound dry until daisy are moved in around 10 days. -Patient Stable -Discharge to Home with home health Subjective 24 Hr Interval Summary 46-year-old female postop day 3 status post right total knee replacement. Had stiffness with flexion up to 45 yesterday, but patient states that since she was seen yesterday her range of motion is improved. Patient is up and walking with front wheeled walker. Patient was able to climb 1 flight of stairs up and down yesterday. Pain is well controlled. Denies any calf pain, shortness of breath or chest pain. Patient will likely be discharged home today if cleared by medicine and PT. Constitutional: ambulates, no complaints Pain Control: well controlled Exam/Review of Systems Vital Signs Vitals Vital Signs Date Time Temp Pulse Resp B/P Pulse Ox O2 Delivery O2 Flow Rate FiO2 09/19/16 19:25 98.5 64 16 96/47 99 09/18/16 05:27 Nasal Cannula 2.0 Intake and Output 09/19/16 09/19/16 09/20/16 15:00 23:00 07:00 Intake Total 700 ml 1050 ml Output Total 900 ml Balance 700 ml 150 ml Exam Free Text/Dictation -Hemovac: Removed -Pain Cocktail Drains: Intact -Incision: Clean, Dry and Intact without any redness or drainage -5/5 Tibialis Anterior, EHL Gastrocnemius/Soleus and Peroneals -About 5 lag from full extension. Patient is able to flex up to 80 on exam today. -Normal Sensation -Palpable DP/PT, Capillary Refill <2 secs -No Distal Edema -Negative Perla Sign/No calf pain -Toes Freely Movable Constitutional: alert, oriented, well developed Results Result Diagram: 09/20/16 0435 09/19/16 0449 EFE SWANSON PA-C Sep 20, 2016 07:44
--- NOTE | 2016-09-20 07:47 | PDOCDIS ---
Discharge Instructions DIAGNOSIS Discharge Diagnosis: Status post right total knee replacement. CONDITION Patient Condition: Stable HOME CARE INSTRUCTIONS: Diet Instructions: Regular ACTIVITY: Activity Restrictions: Slowly Increase Activity Rest between Activity Avoid heavy lifting No Sexual Activity Do not Drive Do not operate Machinery Avoid Heavy Housework Keep Limb Elevated Weight Bearing (As tolerated and with front wheeled walker if needed.) Bathing Restrictions: Shower (Apply Tegaderm prior to shower. Make sure areas completely dry before removing Tegaderm. Do this each day until daisy are removed.) FOLLOW UP/APPOINTMENTS Appointments October 08 at 2:45 PM Continue DVT prophylaxis Pain medications as needed EFE SWANSON PA-C Sep 20, 2016 07:47
--- NOTE | 2016-09-20 07:53 | DS ---
Date/Time of Note Date/Time of Note DATE: 09/20/16 TIME: 07:50 Discharge Summary Admission/Discharge Info Admit Date/Time Sep 17, 2016 at 05:28 Discharge Date/Time Final Diagnosis Status post right total knee arthroplasty Patient Condition: Stable Hospital Course On the day of admission, the patient underwent right total knee arthroplasty Intraoperative complications: None Postoperative complications: None The patient was given prophylactic antibiotics and anticoagulants. On the day of surgery and first postoperative day patient was started on gait training and was taught usual restrictions following knee replacement Suction drain removed on the first postoperative day and the dressings were changed. The wound was found to be clean and healing well. There was no sign of infection. Pain cocktail given. On the second postoperative day, patient continued with inpatient PT. Dressings were changed. Wound was found to be clean and healing well. No signs of infection. Pain cocktail given. On the day of discharge, the wound was clean and healing well; there was no sign of infection. Pain cocktail given and drains were removed. The dressings were changed. Discharge Temperature: 97.4 Discharge White Blood Cell Count: 4.3 Discharge Hemoglobin: 10.7 The patient was discharged home with home health. Arrangements were made for visiting nurses and home health/physical therapy. The patient will be seen in office at scheduled postoperative evaluation on 10/08 at 2:45PM. Should patient complain of any problems prior to scheduled postoperative evaluation date, they may call into outpatient clinic to determine if they need to be scheduled at sooner appointment to be seen immediately if needed. Discharge medications: As per medication reconciliation form Diet: Same as preadmission diet. This is Efe Grajeda PA-C dictating discharge summary for Dr. Ho Armenta. Home Meds Reported Medications Vortioxetine Hydrobromide (Brintellix) 20 Mg Tablet, 20 MG PO DAILY, TAB 09/17/16 Vit27&Calcium/Iron/Fa (TRINATAL RX 1 TABLET) 1 Each Tablet, 1 EACH PO, TAB 09/17/16 Cholecalciferol (Vitamin D3) (Vitamin D3) 50,000 Unit Capsule, 05584 UNIT PO QWEEK, CAP 09/17/16 Quetiapine Fumarate* (Seroquel* XR) 200 Mg Tab.sr.24h, 200 MG PO QHS, #30 TAB 09/17/16 Lorazepam* (Lorazepam*) 1 Mg Tablet, 1 MG PO BID Y for ANXIETY, #30 TAB 09/17/16 Eszopiclone (Lunesta) 3 Mg Tablet, 3 MG PO HS Y for INSOMNIA, TAB 09/17/16 Progesterone,Micronized* (Prometrium*) 100 Mg Capsule, 100 MG HS, CAP 09/17/16 Levothyroxine Sodium* (Levothyroxine Sodium*) 112 Mcg Tablet, 112 MCG PO BEFORE BREAKFAST, #30 TAB 09/17/16 Pantoprazole* (Protonix*) 40 Mg Tablet.dr, 40 MG PO DAILY, TAB 09/17/16 Carbamazepine* (Carbamazepine*) 100 Mg Tab.chew, 200 MG PO TID, #90 TAB.CHEW 09/17/16 Follow-up Plan 10/08/16 at 2:45PM Pending Labs Laboratory Tests Test 09/20/16 04:35 Basophils # 0.010^3/ul (0.0-0.1) Basophils % 0.7% (0.0-2.0) Eosinophils # 0.110^3/ul (0.0-0.5) Eosinophils % 3.0% (0.0-7.0) Hematocrit 34.3% (37.0-47.0) Hemoglobin 10.7g/dl (12.0-16.0) Lymphocytes # 1.510^3/ul (0.8-2.9) Lymphocytes % 34.1% (15.0-51.0) Mean Corpuscular Hemoglobin 30.1pg (29.0-33.0) Mean Corpuscular Hemoglobin Concent 31.2g/dl (32.0-37.0) Mean Corpuscular Volume 96.6fl (82.0-101.0) Mean Platelet Volume 9.9fl (7.4-10.4) Monocytes # 0.510^3/ul (0.3-0.9) Monocytes % 10.6% (0.0-11.0) Neutrophils # 2.210^3/ul (1.6-7.5) Neutrophils % 51.4% (39.0-77.0) Nucleated Red Blood Cells # 0.010^3/ul (0.0-0.0) Nucleated Red Blood Cells % 0.0/100WBC (0.0-0.0) Platelet Count 20243^3/UL (140-415) Red Blood Count 3.5510^6/ul (4.20-5.40) Red Cell Distribution Width 14.4% (11.5-14.5) White Blood Count 4.310^3/ul (4.8-10.8) EFE SWANSON PA-C Sep 20, 2016 07:53
[2016-09-20] MEDS: FERROUS FUMARATE (SR) TAB PO SCH (08:25)
[2016-09-20] MEDS: DOCUSATE SODIUM 100 MG CAP PO SCH (08:25)
[2016-09-20] MEDS: CELECOXIB 200 MG CAP PO SCH (08:25)
[2016-09-20] MEDS: ASPIRIN (EC) 325 MG TAB PO SCH (08:25)
[2016-09-20] MEDS: carBAMAZepine CHEW 100 MG CHEW PO SCH ×2 (08:26→13:01)
[2016-09-20] MEDS: TRINTELLIX 20 MG PO SCH (08:27)
--- NOTE | 2016-09-20 08:31 | CONS ---
Date/Time of Note Date/Time of Note DATE: 09/20/16 TIME: 08:30 Assessment/Plan Assessment/Plan Additional Assessment/Plan 1. Stable postop right knee, labs rev 2. History of hypothyroidism, on replacement 3. History of gastroesophageal reflux disease, on PPI 4. Can discharge per ortho and PT Consultation Date/Type/Reason Admit Date/Time Sep 17, 2016 at 05:28 Detailed Summary Cardiovascular: No chest pain, No lightheadedness Gastrointestinal: no complaints Genitourinary: no complaints Musculoskeletal: bone/joint pain (mild right knee pain) Exam/Review of Systems Vital Signs Vitals Vital Signs Date Time Temp Pulse Resp B/P Pulse Ox O2 Delivery O2 Flow Rate FiO2 09/20/16 07:00 97.4 68 18 142/70 99 09/18/16 05:27 Nasal Cannula 2.0 Intake and Output 09/19/16 09/19/16 09/20/16 15:00 23:00 07:00 Intake Total 700 ml 1050 ml Output Total 900 ml Balance 700 ml 150 ml Exam Neck: No jvd Respiratory: clear to auscultation Cardiovascular: regular rate and rhythm Gastrointestinal: soft Extremities: No edema (and no calf tend) Results Result Diagram: 09/20/16 0435 09/19/16 0449 Results 24 hrs Laboratory Tests Test 09/20/16 04:35 Basophils # 0.0 Basophils % 0.7 Eosinophils # 0.1 Eosinophils % 3.0 Hematocrit 34.3 L Hemoglobin 10.7 L Lymphocytes # 1.5 Lymphocytes % 34.1 Mean Corpuscular Hemoglobin 30.1 Mean Corpuscular Hemoglobin Concent 31.2 L Mean Corpuscular Volume 96.6 Mean Platelet Volume 9.9 # Monocytes # 0.5 Monocytes % 10.6 Neutrophils # 2.2 Neutrophils % 51.4 Nucleated Red Blood Cells # 0.0 Nucleated Red Blood Cells % 0.0 Platelet Count 196 Red Blood Count 3.55 L Red Cell Distribution Width 14.4 White Blood Count 4.3 #L Medications Medications Current Medications Dextrose/Lactated Ringer's (D5-Lr) 1,000 ml @ 80 mls/hr [id number] IV Last administered on 09/18/16t 06:11; Admin Dose 80 MLS/HR; Start 09/17/16 at 11:19 Zolpidem Tartrate (Ambien) 5 mg HS PRN PO INSOMNIA; Start 09/17/16 at 11:30 Miscellaneous Information (Note) NOTE XX ; Start 09/17/16 at 11:30 Aspirin (Ecotrin) 325 mg BID PO Last administered on 09/19/16 20:44; Admin Dose 325 MG; Start 09/18/16 at 09:00 Celecoxib (Celebrex) 200 mg BID PO Last administered on 09/19/16 20:44; Admin Dose 200 MG; Start 09/18/16 at 09:00 Dexamethasone (Decadron) 4 mg DAILY@07 IV Last administered on 09/20/16 06:08 ; Admin Dose 4 MG; Start 09/18/16 at 07:00; Stop 09/21/16 at 06:59 Docusate Sodium/ Ferrous Fumarate (Esequiel-Sequels) 1 tab BID PO Last administered on 09/19/16 21:19; Admin Dose 1 TAB; Start 09/18/16 at 09:00 Docusate Sodium (Colace) 200 mg BID PO Last administered on 09/19/16 20:44; Admin Dose 200 MG; Start 09/18/16 at 09:00; Stop 09/21/16 at 08:59 Simethicone (Mylicon) 80 mg TID PRN PO DISTENSION/GAS/BLOATING; Start 09/17/16 at 11:30 Senna/Docusate Sodium (Senokot-S) 2 tab BID PRN PO CONSTIPATION Last administered on 09/20/16 06:10; Admin Dose 2 TAB; Start 09/17/16 at 11:30 Magnesium Hydroxide (Milk Of Mag) 30 ml HS PRN PO CONSTIPATION Last administered on 09/19/16 18:01; Admin Dose 30 ML; Start 09/17/16 at 11:30 Bisacodyl (Dulcolax Supp) 10 mg DAILY PRN [place] CONSTIPATION; Start 09/17/16 at 11 :30 Sodium Biphosphate/ Sodium Phosphate (Fleet Enema) 133 ml DAILY PRN [place] CONSTIPATION; Start 09/17/16 at 11:30 Diphenhydramine HCl (Benadryl) 25 mg Q4H PRN IM ITCHING OR RASH; Start at 11:30 Ketorolac Tromethamine (Toradol) 30 mg DAILY@06 PRN INJ ADMINSTER BY SURGEON ONLY; Start 09/18/16 at 06:00; Stop 09/22/16 at 05:59 Bupivacaine HCl/ Epinephrine Bitart (Marcaine 0.25%/ Epi (Sdv) 30 ml) 20 ml DAILY@06 PRN INJ ADMINSTER BY SURGEON ONLY; Start 09/18/16 at 06:00; Stop 09/22 at 05:59 Naloxone HCl (Narcan) 0.2 mg Q2M PRN IV DECREASED REPIRATORY RATE; Start at 11:30 Pantoprazole (Protonix Tab) 40 mg BID@06,18 PO Last administered on 09/20/16 06:08; Admin Dose 40 MG; Start 09/17/16 at 18:00 Carbamazepine (Tegretol) 200 mg TID PO Last administered on 09/19/16 20:45; Admin Dose 200 MG; Start 09/17/16 at 21:00 Lorazepam (Ativan) 1 mg BID PRN PO ANXIETY Last administered on 09/18/16 00:39 ; Admin Dose 1 MG; Start 09/17/16 at 13:00 Progesterone (Prometrium) 100 mg HS PO Last administered on 09/19/16 20:43; Admin Dose 100 MG; Start 09/17/16 at 21:00 Oxycodone HCl (Roxicodone) 20 mg Q3H PRN PO PAIN LEVEL 8-10 Last administered on 09/20/16 03:43; Admin Dose 20 MG; Start 09/17/16 at 15:00 Oxycodone HCl (Roxicodone) 10 mg Q3H PRN PO PAIN LEVEL 4-7 Last administered on 09/19/16 02:19; Admin Dose 10 MG; Start 09/17/16 at 15:00 Oxycodone HCl (Roxicodone) 5 mg Q3H PRN PO PAIN LEVEL 1-3; Start 09/17/16 at 15 :00 Quetiapine Fumarate (Seroquel) 200 mg HS PO Last administered on 09/19/16 20: 45; Admin Dose 200 MG; Start 09/18/16 at 21:00 Patient Own Medication 1 ea QAM PO Last administered on 09/19/16 08:58; Admin Dose 1 EA; Start 09/19/16 at 09:00 SANDRA ALBARRAN MD Sep 20, 2016 08:31
[2016-09-20] MEDS ORDERED: ONDANSETRON 4 MG INJ IV PRN (10:00)
== END 2016-09-20 14:30 | disposition home health service (06) | DRG 470 ==
LOC: REC 05:28 → MS1 13:29
PROC: 0SRC0J9 Replacement of Right Knee Joint with Synthetic Substitute, Cemented, Open Approach (ICD-10-PCS; principal; 2016-09-17 07:30)
DX: M17.11 Unilateral primary osteoarthritis, right knee (principal); Z68.42 Body mass index [BMI] 45.0-49.9, adult; E66.01 Morbid (severe) obesity due to excess calories; E03.9 Hypothyroidism, unspecified; G40.909 Epilepsy, unspecified, not intractable, without status epilepticus
CPT/HCPCS: 73560; 73562; 80048; 81003; 85025; 86850; 86900; 86901; 86920; 87081; 87086; 97110; 97116; 97162; 97167; 97530; J1940; C1776; J0131; J0330; J0690; J0735; J1100; J1170; J1885; J2250; J2274; J2405; J2710; J2795; J3010; J3370; J7120; J7121

== ENCOUNTER → 2016-09-26 | Outpatient (CLI) | payer BC ==
[~2016-09-26] MED LIST: CARB100T2 PO; CHOL500051 PO; ESZO3TAB12 PO; LORA1TAB PO; PANT40TA3 PO; PREN1TAB38 PO; PROG100C3; QUET200T4 PO; SYN112 PO; VORT20TA PO
--- NOTE | 2016-09-26 17:50 | HKNOTE ---
DATE OF SERVICE: 09/26/2016 SUBJECTIVE: A 46-year-old female who presents today for postoperative visit status post right total knee replacement on 09/17/2016. Patient comes in earlier than scheduled as she was having swelling with calf pain. Stat venous Doppler ultrasound ordered, and patient had venous Doppler performed o n 09/24/2016. The patient states that calf pain has improved, but she continues with swelling to th e right lower extremity, which is also the same side that the surgery was performed on. Denies any chest pain, shortness of breath. Patient having discomfort to the right knee, primarily to the medi al side of the proximal tibia. No complications to the surgical wound site. Patient is ambulating with assistance using front-wheeled walker. Continues with at-home physical therapy and follow-ups with home health. OBJECTIVE: VITAL SIGNS: Blood pressure is 125/63, temperature is 98.3, pulse is 69, respiratory rate is 12, he ight is 5 feet 2 inches, weight is 250 pounds. GENERAL: Surgical wound is clean, dry, and intact. [place] intact. No ecchymosis surrounding woun d. Tenderness to palpation to the proximal tibia on the medial side. Negative calf pain/negative H omans sign. The patient is able to actively flex up to 70 degrees with about 15 to 20 degrees lag f rom full extension. The patient is ambulating with limp. Assisted ambulation using front-wheeled w alker. IMAGING STUDIES: Venous Doppler performed on 09/24/2016 by physician Marina Aponte showing no eviden ce of DVT to the right lower extremity. Venous reflux, no significant reflux noted. Normal system venous duplex scan. No DVT. ASSESSMENT AND PLAN: 1. Continue at home physical therapy. Stress on improvement of range of motion with flexion and ex tension, as well as gait training. Advised to take pain medication prior to initiation of physical therapy. 2. Wound care discussed in detail again today with patient, and patient is aware. Continue to use Tegaderm dressing, especially while showering. 3. Possible follow up with primary care physician recommended for patient due to concern of swellin g, as Lasix may be recommended to decrease swelling. 4. The patient will follow up as scheduled 3-week postoperative appointment, and patient made aware that she may follow up earlier should there be another complication. Dr. Sepulveda has also seen patient today and agrees with plan. Dictated By: EFE MENDEZ for CELESTE SEPULVEDA MD, KP/JUAN Conf#: [id number] DID#: [id number]
== END | disposition home or self-care (01) ==
LOC: HKI 14:31
DX: Z47.1 Aftercare following joint replacement surgery (principal); M79.89 Other specified soft tissue disorders; M79.661 Pain in right lower leg; R26.89 Other abnormalities of gait and mobility; Z96.651 Presence of right artificial knee joint

== ENCOUNTER → 2016-10-08 | Outpatient (CLI) | payer BC ==
--- NOTE | 2016-10-08 19:32 | HKNOTE ---
DATE OF SERVICE: 10/08/2016 The patient had a right knee replacement on 09/17/2016. She comes in for checkup. The wound is abel an and healing well. She already lacks some extension (about 15 degrees) and flexion is to 100 degr ees. She is still having outpatient home physical therapy. She is advised to start outpatient phys ical therapy and she was given a prescription for the same. She will be seen again in 3 weeks' time for reevaluation. Dictated By: CELESTE THOMAS/JUAN Conf#: [id number] DID#: [id number]
== END | disposition home or self-care (01) ==
LOC: HKI 14:37
DX: Z47.1 Aftercare following joint replacement surgery (principal); Z96.651 Presence of right artificial knee joint

== ENCOUNTER → 2016-10-29 | Outpatient (CLI) | payer BC ==
--- NOTE | 2016-10-29 15:20 | RADRPT ---
PROCEDURE: XR right knee. CLINICAL INDICATION: Knee pain. TECHNIQUE: AP weightbearing, lateral weightbearing and sunrise views are available for review. COMPARISON: 09/17/2016 FINDINGS: There is a constrained total knee replacement. There is no evidence of loosening of the prosthesis. There is no evidence of hardware failure. The osseous structures are normal in mineralization, archi tecture and alignment No acute fracture or dislocation is seen.No osseous lesions are identified. T he soft tissues are unremarkable . IMPRESSION: Unremarkable constrained total knee replacement. RPTAT: HGDB .Huber Baca MD, MD Date Time Electronically viewed and signed by .Huber Baca MD, on 10/29/2016 15:20 .B/
--- NOTE | 2016-10-29 16:41 | PN ---
Date/Time of Note Date/Time of Note DATE: 10/29/16 TIME: 16:35 Outpatient Progress Note Chief Complaint 6 week postop right total knee replacement HPI 46-year-old female presents today for 6 week postoperative visit status post right total knee arthroplasty performed on 09/17/2016. Patient continues using assisted ambulatory device in regards to single-point cane. She is no longer using a walker. She does state that at home she uses the walker but feels that she does not need it. She has fear of instability and fall although she does state that her strength has significantly improved. She has a difficult time trusting herself as far as walking independently without assisted ambulatory device. She has had 5 sessions of outpatient physical therapy in which she states is "going well." She states that her range of motion continues to improve although she still has lack from full extension and some stiffness on flexion. Denies any fall since she was last seen. She states that her pain is "off/on" but when pain is present it is on average a 1-2/10 on the pain scale. She does not experience pain complaints on a daily basis. Pain is usually after strenuous activity or physical therapy session. Continues using pain medications as needed. Denies any chest pain/tightness, calf pain, shortness of breath. Review of Systems Const: No Fever, no chills, no Fatigue, normal appetite, no diaphoresis. Resp: No SOB, no wheezing, no chest pain. CV: No chest pain, no palpitaions, no PEREZ. Physical Exam Height 5 foot 2 inches, weight 250 pounds. General Appearance: well-developed, well-nourished, in no acute distress. Right knee: Limp with ambulation. Patient is using single-point cane for assisted ambulation. No pain with weightbearing today. No tenderness to palpation to the right knee. Surgical wound is healing well. 10 lag from full extension. Patient is able to actively flex up to 90. Passive range of motion is up to 90. Negative Homans sign on exam. Normal sensory examination to light touch. Imaging: X-ray of the right knee performed on 10/29/2016 showing all components appearing well aligned, attached and integrated to the bone. No signs of any lucency between metal and bone. Allergies Coded Allergies: No Known Allergy (Unverified , 09/17/16) Assessment/Plan -Patient progressing well -Surgical wound continues to heal well. -No signs of infection or DVT on exam. May discontinue DVT prophylaxis. -X-rays showing no abnormalities in regards to prosthesis attachment to bone. -Range of motion is not where he would like to be at this stage of the surgery. Lengthy discussion regarding improve range of motion while performing activities at home, as well as attending physical therapy sessions discussed in detail with patient today. -Antibiotic prophylaxis card provided today. -Follow-up 2 weeks for repeat range of motion check. Discussion regarding return to driving had today. Typically at 6 weeks we release patient to driving as tolerated but since patient is having low confidence in regards to functionality she was advised to avoid driving until she builds up her confidence in strengthening to the right knee. -Extension of patient remaining off work given for additional 2 weeks. -Prescription for [place] 5/325 mg #40 tablets provided today with instructions to use as needed for severe pain only and prior to physical therapy sessions. Patient may stop Celebrex. Prescription for ibuprofen 800 mg 1 tab p.o. 3 times daily #90 tablets provided. One refill of ibuprofen 800 mg provided today. May use ibuprofen for mild to moderate pain complaints. Dental prophylaxis discussed in detail today. Patient given prophylaxis card with antibiotic options. Should patient have allergy to specific medication ( eg penicillin) alternative options are also provided on the card. Patient is aware that antibiotics should be taken prior to any procedures to prevent increased risk of infection to the joint. Patient is aware that this will be for the rest of their life. Patient states understanding and compliance. Dr. Armenta was present for exam today and agrees with plan Medications Home Meds Reported Medications Vortioxetine Hydrobromide (Brintellix) 20 Mg Tablet, 20 MG PO DAILY, TAB 09/17/16 Vit27&Calcium/Iron/Fa (TRINATAL RX 1 TABLET) 1 Each Tablet, 1 EACH PO, TAB 09/17/16 Cholecalciferol (Vitamin D3) (Vitamin D3) 50,000 Unit Capsule, 13409 UNIT PO QWEEK, CAP 09/17/16 Quetiapine Fumarate* (Seroquel* XR) 200 Mg Tab.sr.24h, 200 MG PO QHS, #30 TAB 09/17/16 Lorazepam* (Lorazepam*) 1 Mg Tablet, 1 MG PO BID Y for ANXIETY, #30 TAB 09/17/16 Eszopiclone (Lunesta) 3 Mg Tablet, 3 MG PO HS Y for INSOMNIA, TAB 09/17/16 Progesterone,Micronized* (Prometrium*) 100 Mg Capsule, 100 MG HS, CAP 09/17/16 Levothyroxine Sodium* (Levothyroxine Sodium*) 112 Mcg Tablet, 112 MCG PO BEFORE BREAKFAST, #30 TAB 09/17/16 Pantoprazole* (Protonix*) 40 Mg Tablet.dr, 40 MG PO DAILY, TAB 09/17/16 Carbamazepine* (Carbamazepine*) 100 Mg Tab.chew, 200 MG PO TID, #90 TAB.CHEW 09/17/16 EFE SWANSON PA-C Oct 29, 2016 16:41
== END | disposition home or self-care (01) ==
LOC: HKI 13:39
DX: Z47.1 Aftercare following joint replacement surgery (principal); Z96.651 Presence of right artificial knee joint

== ENCOUNTER → 2016-11-20 | Outpatient (CLI) | payer BC ==
--- NOTE | 2016-11-20 16:13 | PN ---
Date/Time of Note Date/Time of Note DATE: 11/20/16 TIME: 16:08 Outpatient Progress Note Chief Complaint Right knee pain status post fall yesterday. HPI 46-year-old female presents today for right knee pain after experiencing incidental fall yesterday. Patient states that it was late last night when she experienced a slip and fall. She is unsure what she slipped over. She denies her knee giving out or any form of weakness. At the time of fall, she had 7/10 pain. Since then, she is now experiencing an average of 4/10 pain. Anti- inflammatories have been helping with pain relief. She continues with physical therapy which she states is helping significantly. She has improved functionality. 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 States that return to work has been going well but she does experience aches and pains as she is walking frequently while at work. Denies any chest pain/ tightness, shortness of breath or calf pain. Patient is using single-point cane for assisted ambulation since the fall. Prior to fall she states that she was walking independently without issue. She does feel that pain is gradually improving and feels that single-point cane may not be necessary. She just was experiencing fear since she did have surgery in August 2016. Review of Systems Const: No Fever, no chills, no Fatigue, normal appetite, no diaphoresis. Resp: No SOB, no wheezing, no chest pain. CV: No chest pain, no palpitaions, no PEREZ. Physical Exam Blood pressure is 122/59, temperature is 98.3, pulse is 71, respiratory rate is 12, height is 5 feet 2 inches, weight is 250 pounds. General Appearance: well-developed, well-nourished, in no acute distress. Right knee: Well-healed surgical scar. No tenderness to palpation on exam today. No bruising or acute injuries that are visualized. Patient has 10 lack from full extension. Patient is able to actively flex up to 120. Patient is using single-point cane today status post fall. Negative Homans sign /no calf pain. Allergies Coded Allergies: No Known Allergy (Unverified , 09/17/16) Assessment/Plan * Anti-inflammatories, rest, ice, Deven wrap/compression sleeve recommended for supportive measures. * Continue with physical therapy. * Continue with at home physical therapy using patient education was provided on last visit. She confirms that she remains in possession of at home exercises pamphlet. * Antibiotic card was provided for patient on last visit. * Follow-up at 6 months postop right total knee replacement for repeat evaluation. X-rays on follow-up. Antibiotic card provided for patient on last visit. Patient made aware that dental prophylaxis will be necessary prior to any dental procedure for the remainder of their lifetime. Patient is aware that they must contact their dentist prior to any procedure to inform them of previous joint replacement with prosthesis implant so appropriate antibiotic may be prescribed to lower risk of joint infection status post surgery. Card will also serve as confirmation should patient be traveling and have to go through security such as at an airport. Medications Home Meds Reported Medications Vortioxetine Hydrobromide (Brintellix) 20 Mg Tablet, 20 MG PO DAILY, TAB 09/17/16 Vit27&Calcium/Iron/Fa (TRINATAL RX 1 TABLET) 1 Each Tablet, 1 EACH PO, TAB 09/17/16 Cholecalciferol (Vitamin D3) (Vitamin D3) 50,000 Unit Capsule, 41727 UNIT PO QWEEK, CAP 09/17/16 Quetiapine Fumarate* (Seroquel* XR) 200 Mg Tab.sr.24h, 200 MG PO QHS, #30 TAB 09/17/16 Lorazepam* (Lorazepam*) 1 Mg Tablet, 1 MG PO BID Y for ANXIETY, #30 TAB 09/17/16 Eszopiclone (Lunesta) 3 Mg Tablet, 3 MG PO HS Y for INSOMNIA, TAB 09/17/16 Progesterone,Micronized* (Prometrium*) 100 Mg Capsule, 100 MG HS, CAP 09/17/16 Levothyroxine Sodium* (Levothyroxine Sodium*) 112 Mcg Tablet, 112 MCG PO BEFORE BREAKFAST, #30 TAB 09/17/16 Pantoprazole* (Protonix*) 40 Mg Tablet.dr, 40 MG PO DAILY, TAB 09/17/16 Carbamazepine* (Carbamazepine*) 100 Mg Tab.chew, 200 MG PO TID, #90 TAB.CHEW 09/17/16 EFE SWANSON PA-C Nov 20, 2016 16:13
== END | disposition home or self-care (01) ==
LOC: HKI 15:52
DX: M25.561 Pain in right knee (principal)

== ENCOUNTER → 2016-11-28 | Outpatient (CLI) | payer BC ==
--- NOTE | 2016-11-29 04:08 | HKNOTE ---
DATE OF SERVICE: 11/28/2016 The patient underwent a right total knee replacement on 09/17/2016. She comes in complaining of inc reasing pain in her knee. She feels she went back to work too soon. 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 She states that she was not given enough time to rest when she went back to work and so now they [place] ve transferred her to another pharmacy where she has to stand for 8 hour shifts. She states that th is set her knee back a great deal. She had increasing pain in the knee and she has also lost motion in the knee. The only time she is able to rest now is for the 30 minute lunch break. PHYSICAL EXAMINATION: VITAL SIGNS: Height 5 feet 2 inches, weight 250 pounds. Blood pressure 150/80. Temperature 97.5. RIGHT KNEE: The wound has healed beautifully. No external signs of infection or inflammation. The knee, however, is quite markedly stiff compared to the last visit. Extension lacks 5 degrees. Fle xion is to 95 degrees. MANAGEMENT: The patient was advised that if she does not get her knee moving, we will have to give her general anesthetic and manipulate her knee under anesthesia. I am putting her off work now comp letely until January 13. Patient is given a prescription for physical therapy 3 times a week. She w ill be seen here again in 2 weeks' time for reevaluation. If her knee is not markedly improved in r isha of motion, she will need a manipulation of the knee under general anesthetic. All of this was discussed with her in a fair amount of detail. Dictated By: CELESTE THOMAS/JUAN Conf#: [id number] DID#: [id number]
== END | disposition home or self-care (01) ==
LOC: HKI 14:31
DX: M25.561 Pain in right knee (principal); Z96.651 Presence of right artificial knee joint

== ENCOUNTER → 2016-12-12 | Outpatient (CLI) | payer BC ==
--- NOTE | 2016-12-12 18:41 | HKNOTE ---
DATE OF SERVICE: 12/12/2016 SUBJECTIVE: The patient returned to work, but unfortunately they had her standing for 8 hours a day and this aggravated her right knee. The patient underwent a right total knee replacement on 2016. PHYSICAL EXAMINATION: She walks with a cane. Temperature is 98.1, blood pressure 145/75. The woun d looks excellent Range of motion in the knee is 0 to 100 degrees (she has fat legs and that limits the flexion range). She is continuing with physical therapy. Her primary care doctor put her off work until 01/13/2017. MANAGEMENT: The patient will be seen again in the week before 01/13/2017 for only evaluation as to her progress. Dictated By: CELESTE THOMAS/JUAN Conf#: [id number] DID#: [id number]
== END | disposition home or self-care (01) ==
LOC: HKI 13:44
DX: Z47.1 Aftercare following joint replacement surgery (principal); Z96.651 Presence of right artificial knee joint
CPT/HCPCS: G0463

== ENCOUNTER → 2017-01-07 | Outpatient (CLI) | payer BC ==
--- NOTE | 2017-01-08 10:53 | RADRPT ---
PROCEDURE: XR right knee. CLINICAL INDICATION: Knee pain. TECHNIQUE: AP weightbearing, lateral weightbearing and sunrise views are available for review. COMPARISON: 10/29/2016 FINDINGS: There is a constrained total knee replacement. There is no evidence of loosening of the prosthesis. There is no evidence of hardware failure. The osseous structures are normal in mineralization, archi tecture and alignment No acute fracture or dislocation is seen.No osseous lesions are identified. T he soft tissues are unremarkable . IMPRESSION: Unremarkable constrained total knee replacement. RPTAT: HGDB .Huber Baca MD, MD Date Time Electronically viewed and signed by .Huber Baca MD, on 01/08/2017 10:52 .B/
== END | disposition home or self-care (01) ==
LOC: HKI 13:39
DX: M25.561 Pain in right knee (principal); Z96.651 Presence of right artificial knee joint
CPT/HCPCS: 73562; G0463

== ENCOUNTER → 2017-01-15 | Outpatient (CLI) | payer BC ==
--- NOTE | 2017-01-16 21:09 | HKNOTE ---
DATE OF SERVICE: 01/15/2017 Patient comes for preoperative evaluation. She is scheduled to have manipulation of her right knee under general anesthetic on 01/17/2017. She has been cleared for surgery by her latin professor, Dr. Bong Yepez. Possible complications of the procedure were discussed with her, as well as the postoper ative care. At the very end of this evaluation, the patient indicated that she has "an infected tooth, which she which she had before she had her knee replacement". To make matters worse, her dentist has told her that she could not have removal of the infected toot h for 6 months after a knee or hip replacement. An attempt was made to reach Dr. Santana, , but he has never called back. I wanted to ask him where he got the notion about the infected tooth not being removed. In my opinion, she needs to get this infected tooth out as possible under an antibiotic umbrella. Ev isabel day that this infected tooth is in her mouth, she runs the risk of getting an infection in her k nee. For now, we are postponing the manipulation of the knee under anesthesia. The patient will let us k now when the tooth has been removed so that we can leave the suitable interval and then manipulate h er knee. Dictated By: CELESTE THOMAS/JUAN Conf#: [id number] DID#: [id number]
== END | disposition home or self-care (01) ==
LOC: HKI 14:01
DX: Z01.818 Encounter for other preprocedural examination (principal); K04.7 Periapical abscess without sinus
CPT/HCPCS: G0463

== ENCOUNTER → 2017-02-11 | Outpatient (CLI) | payer OTHER ==
[~2017-02-11] MED LIST changes: +CARB200T70 PO; +PROG100C3 PO; +QUET300T5 PO
--- NOTE | 2017-02-20 07:06 | HKNOTE ---
DATE OF SERVICE: 02/11/2017 The patient comes in for a preoperative evaluation. Scheduled for manipulation of her right knee under general anesthetic on 02/12/2017. She by Dr. Damon Scanlon. The procedure and possible complications including fracture of bone or rupture of muscle discussed with her. The patient is agreeable to proceeding. Numerous questions were asked and answered. Dictated By: Ho Armenta MD /isha/earnestine /Document#: [id number]
== END | disposition home or self-care (01) ==
LOC: HKI 14:31
DX: Z01.818 Encounter for other preprocedural examination (principal)
CPT/HCPCS: G0463

== ENCOUNTER 2017-02-12 06:47 | Day surgery (SDC) | payer OTHER ==
[2017-02-12] VITALS (10 sets, daily range): BP systolic 108–128; BP diastolic 60–71; PULSE 65–79; RESP 13–18; Ht 157.5 cm; Wt 116.0 kg
[~2017-02-12] VITALS: Ht 157.5 cm; Wt 116.0 kg
[~2017-02-12 06:47] MED LIST changes: -CARB200T70 PO; -PROG100C3 PO; -QUET300T5 PO
--- NOTE | 2017-02-12 06:58 | HPN ---
Date/Time of Note Date/Time of Note DATE: 02/12/17 TIME: 06:57 Interval H&P Admission Note Pt. seen H&P reviewed: No system changes EFE SWANSON PA-C Feb 12, 2017 06:57
[2017-02-12] MEDS ORDERED: SUCCINYLCHOLINE CHLORIDE 100 MG/5 ML SYG IV ONE (07:00)
[2017-02-12] MEDS ORDERED: CARB200T70 PO (07:24)
[2017-02-12] MEDS ORDERED: PROG100C3 PO (07:26)
[2017-02-12] MEDS ORDERED: QUET300T5 PO (07:27)
[2017-02-12] MEDS ORDERED: LORA1TAB PO (07:28)
[2017-02-12] MEDS ORDERED: PANT40TA3 PO (07:28)
[2017-02-12] MEDS ORDERED: VORT20TA PO (07:31)
[2017-02-12] MEDS ORDERED: ONDANSETRON 4 MG INJ IV SCH (08:00)
[2017-02-12] MEDS ORDERED: DEXAMETHASONE 4 MG/ML 1 ML INJ IV SCH (08:00)
[2017-02-12] MEDS ORDERED: LANSOPRAZOLE 30 MG CAP PO SCH (08:00)
[2017-02-12] MEDS ORDERED: oxyCODONE (CR) 10 MG TAB [oxyCONTIN] PO SCH (08:00)
[2017-02-12] MEDS ORDERED: CELECOXIB 200 MG CAP PO SCH (08:00)
[2017-02-12] MEDS ORDERED: VANCOMYCIN 1 GM in NS 250 ML IVPB SCH (08:00)
[2017-02-12] MEDS ORDERED: ACETAMINOPHEN 1000MG/100ML IV 100 ML IVPB SCH ×2 (08:00→09:00)
[2017-02-12] MEDS ORDERED: BUPIVACAINE 0.25%/EPI (SDV) 30 ML INJ ONE (08:08)
[2017-02-12] MEDS ORDERED: ONDANSETRON 4 MG INJ ONE (08:30)
[2017-02-12] MEDS ORDERED: ROCURONIUM 50 MG INJ ONE (08:30)
[2017-02-12] MEDS ORDERED: MIDAZOLAM 1 MG/ML 2 ML INJ ONE (08:30)
[2017-02-12] MEDS ORDERED: PROPOFOL 20 ML ONE (08:30)
[2017-02-12] MEDS ORDERED: DEXAMETHASONE 4 MG/ML 1 ML INJ ONE (08:30)
[2017-02-12] MEDS ORDERED: NEOSTIGMINE 3 MG/3 ML SYRINGE ONE (08:30)
[2017-02-12] MEDS ORDERED: FENTAnyl 50 MCG/ML VIAL ONE (08:30)
[2017-02-12] MEDS ORDERED: GLYCOPYRROLATE 0.4 MG INJ ONE (08:30)
[2017-02-12] MEDS ORDERED: CEFAZOLIN 1 GM INJ ONE (08:30)
[2017-02-12] MEDS ORDERED: ONDANSETRON 4 MG INJ IV PRN ×2 (09:00→09:30)
[2017-02-12] MEDS ORDERED: FENTAnyl 50 MCG/ML VIAL IV PRN (09:30)
--- NOTE | 2017-02-16 16:52 | OPR ---
DATE OF OPERATION: 02/12/2017 SURGEON: Ho Armenta MD CODE ENFORCEMENT SUPERVISOR: Anneliese Vallejo PA-C PREOPERATIVE DIAGNOSIS: Stiff right knee following total knee replacement. POSTOPERATIVE DIAGNOSIS: Stiff right knee following total knee replacement. OPERATION PERFORMED: Manipulation of right knee under general anesthetic. FINDINGS AT SURGERY: Before manipulation, the knee was found to lack 10 degrees of extension and flexion was to 90 degrees. After manipulation, extension remained unchanged and flexion was full and that is 130 degrees. DESCRIPTION OF PROCEDURE: Under general anesthetic together with succinylcholine. Under sterile condition the knee was injected with 10 cc of Marcaine with adrenalin. The knee was manipulated with a stethoscope applied to it. The stethoscope was used to clear the scar tissue breakdown. The knee was manipulated until no further scar tissue to break down and flexion was full. An attempt was made to improve extension (as is used in the case) it was not possible to force extension. Photographs were obtained before and after the procedure. At the end of the procedure, the knee was wrapped with an Deven bandage and ice bag was applied. There were no problems or complications. Dictated By: Ho Armenta MD /isha/lidia /Document#: [id number]
== END 2017-02-12 10:15 | disposition home or self-care (01) ==
LOC: SDS 06:47
DX: M25.661 Stiffness of right knee, not elsewhere classified (principal); G40.909 Epilepsy, unspecified, not intractable, without status epilepticus; E03.9 Hypothyroidism, unspecified; E66.01 Morbid (severe) obesity due to excess calories; Z68.42 Body mass index [BMI] 45.0-49.9, adult
CPT/HCPCS: 27570; 84703; J0131; J1100; J2250; J2405; J3010; J3370; J7999; J0690; J2710

== ENCOUNTER → 2017-02-26 | Outpatient (CLI) | payer OTHER ==
[~2017-02-26] MED LIST changes: -CARB100T2 PO; +CARB200T70 PO; -CHOL500051 PO; -ESZO3TAB12 PO; -PREN1TAB38 PO; -PROG100C3; +PROG100C3 PO; -QUET200T4 PO; +QUET300T5 PO; -SYN112 PO
--- NOTE | 2017-02-26 14:46 | PN ---
Date/Time of Note Date/Time of Note DATE: 02/26/17 TIME: 14:43 Outpatient Progress Note Chief Complaint Follow-up status post right knee manipulation under anesthesia. HPI 46-year-old female presents today for follow-up status post right total knee replacement on 09/17/2016 as well as recent right knee manipulation under anesthesia performed on 02/12/2017. Since the manipulation patient states that her range of motion has improved. She does continue with pain but she also states that she was able to walk the [place] yesterday. She is weightbearing and she is no longer using assisted ambulatory device. Denies any falls or injury. Taking [place] as needed for pain. Review of Systems Const: No Fever, no chills, no Fatigue, normal appetite, no diaphoresis. Resp: No SOB, no wheezing, no chest pain. CV: No chest pain, no palpitaions, no PEREZ. Physical Exam Blood pressure is 128/72, temperature is 98.6, pulse is 63, respiratory rate is 12, height is 5 feet 2 inches, weight is 260 pounds General Appearance: well-developed, well-nourished, in no acute distress. Right knee: Well-healed surgical scar. Patient is able to actively flex up to 105 with near full extension. Gait showing slight limp but walking independently today. No tenderness to palpation. Normal sensory examination to light touch. Allergies Coded Allergies: No Known Allergy (Unverified , 02/12/17) Assessment/Plan * Patient has had direct consult with Dr. Armenta who feels that she is able to return to work at least on a part-time status being about 4 hours per day. * Continue at home exercises as well as physical therapy. * Follow-up in [address] for [address] evaluation. Dr. Armenta was present for examination and agrees with plan. Medications Home Meds Reported Medications Vortioxetine Hydrobromide (Brintellix) 20 Mg Tablet, 20 MG PO DAILY, TAB 02/12/17 Lorazepam* (Lorazepam*) 1 Mg Tablet, 1 MG PO BID Y for ANXIETY, #30 TAB 02/12/17 Pantoprazole* (Protonix*) 40 Mg Tablet.dr, 40 MG PO DAILY, TAB 02/12/17 Quetiapine Fumarate* (Seroquel* XR) 300 Mg Tab.sr.24h, 300 MG PO QHS, #30 TAB 02/12/17 Progesterone,Micronized* (Prometrium*) 100 Mg Capsule, 100 MG PO HS, CAP 02/12/17 Carbamazepine* (Tegretol Xr*) 200 Mg Tab.sr.12h, 200 MG PO TID, TAB.SA 02/12/17 EFE SWANSON PA-C Feb 26, 2017 14:46
== END | disposition home or self-care (01) ==
LOC: HKI 14:21
DX: M25.561 Pain in right knee (principal); Z96.651 Presence of right artificial knee joint

== ENCOUNTER → 2017-04-30 | Outpatient (CLI) | payer OTHER ==
--- NOTE | 2017-04-30 11:34 | PN ---
Date/Time of Note Date/Time of Note DATE: 04/30/17 TIME: 11:29 Outpatient Progress Note Chief Complaint Status post total knee replacement and manipulation under anesthesia HPI 46-year-old female presents today for follow-up status post right total knee replacement on 09/17/2016 followed by right knee manipulation under anesthesia on 02/12/2017. Patient denies any pain complaints to the right knee. She continues to do well in that regard. In regards to range of motion she continues with stiffness. She has been performing physical therapy states that she has ongoing stiffness in regards to flexion and extension. She is able to climb stairs. She is walking without assistive ambulatory device so there has been improvement in function. On her last range of motion check immediately after many position and anesthesia she was flexing up to 105. She presents today for follow-up range of motion check. Review of Systems Const: No Fever, no chills, no Fatigue, normal appetite, no diaphoresis. Resp: No SOB, no wheezing, no chest pain. CV: No chest pain, no palpitaions, no PEREZ. Physical Exam Blood pressure is 125/57, temperature is 98.1, pulse is 65, respiratory rate is 12, height is 5 foot 2 inches, weight is 200 pounds General Appearance: well-developed, well-nourished, in no acute distress. Right knee: Well-healed surgical scar to the anterior right knee. Patient has about 10 lag from full extension. Patient is flexing up to 85 as measured with goniometer. Passive range of motion shows flexion up to 85. Normal sensory examination to light touch. 5/5 strength on resistance with flexion and extension. Negative Homans sign. Allergies Coded Allergies: No Known Allergy (Unverified , 02/12/17) Assessment/Plan Problems: (1) Status post total right knee replacement * Direct discussion with patient and Dr. Armenta had today. Dr. Armenta did recommend a repeat manipulation under anesthesia the patient is reluctant as she is not sure she wants to proceed. Patient initially had improve range of motion status post manipulation in January 2017 and her range of motion is further decreased. She does state that she is performing at home exercises and she does state that she is consistent with her physical therapy. Dr. Armenta is also given her the other option of continuing to live with the knee as is as she is now walking independently and she is able to climb stairs and perform her daily activities without pain. Patient has elected to continue as is and does not want to pursue manipulation under anesthesia. * Patient will follow up on as-needed basis. Dr. Armenta was present for examination and agrees with plan. Medications Home Meds Reported Medications Vortioxetine Hydrobromide (Brintellix) 20 Mg Tablet, 20 MG PO DAILY, TAB 02/12/17 Lorazepam* (Lorazepam*) 1 Mg Tablet, 1 MG PO BID Y for ANXIETY, #30 TAB 02/12/17 Pantoprazole* (Protonix*) 40 Mg Tablet.dr, 40 MG PO DAILY, TAB 02/12/17 Quetiapine Fumarate* (Seroquel* XR) 300 Mg Tab.sr.24h, 300 MG PO QHS, #30 TAB 02/12/17 Progesterone,Micronized* (Prometrium*) 100 Mg Capsule, 100 MG PO HS, CAP 02/12/17 Carbamazepine* (Tegretol Xr*) 200 Mg Tab.sr.12h, 200 MG PO TID, TAB.SA 02/12/17 EFE SWANSON PA-C Apr 30, 2017 11:34
--- NOTE | 2017-04-30 11:41 | PN ---
Date/Time of Note Date/Time of Note DATE: 04/30/17 TIME: 11:37 Outpatient Progress Note Chief Complaint This is an erroneous note. Please disregard. Allergies Coded Allergies: No Known Allergy (Unverified , 02/12/17) Assessment/Plan Problems: (1) Status post total right knee replacement Medications Home Meds Reported Medications Vortioxetine Hydrobromide (Brintellix) 20 Mg Tablet, 20 MG PO DAILY, TAB 02/12/17 Lorazepam* (Lorazepam*) 1 Mg Tablet, 1 MG PO BID Y for ANXIETY, #30 TAB 02/12/17 Pantoprazole* (Protonix*) 40 Mg Tablet.dr, 40 MG PO DAILY, TAB 02/12/17 Quetiapine Fumarate* (Seroquel* XR) 300 Mg Tab.sr.24h, 300 MG PO QHS, #30 TAB 02/12/17 Progesterone,Micronized* (Prometrium*) 100 Mg Capsule, 100 MG PO HS, CAP 02/12/17 Carbamazepine* (Tegretol Xr*) 200 Mg Tab.sr.12h, 200 MG PO TID, TAB.SA 02/12/17 EFE SWNASON PA-C Apr 30, 2017 11:41 Allergies Coded Allergies: No Known Allergy (Unverified , 02/12/17) Assessment/Plan Problems: (1) Status post total right knee replacement -Wound healing well after staple removal. No signs of infection. -Continue ASA 325 mg twice daily for DVT prophylaxis until 6 weeks status post surgery. -No signs of DVT. -Patient progressing well. -Follow-up at 6 week postop appointment. X-rays will be performed at 6 weeks postoperative appointment. -Milk of magnesia and Fleet enema recommended by Dr. Armenta today. -Order for outpatient physical therapy given today with focus on improved range of motion. Medications Home Meds Reported Medications Vortioxetine Hydrobromide (Brintellix) 20 Mg Tablet, 20 MG PO DAILY, TAB 02/12/17 Lorazepam* (Lorazepam*) 1 Mg Tablet, 1 MG PO BID Y for ANXIETY, #30 TAB 02/12/17 Pantoprazole* (Protonix*) 40 Mg Tablet.dr, 40 MG PO DAILY, TAB 02/12/17 Quetiapine Fumarate* (Seroquel* XR) 300 Mg Tab.sr.24h, 300 MG PO QHS, #30 TAB 02/12/17 Progesterone,Micronized* (Prometrium*) 100 Mg Capsule, 100 MG PO HS, CAP 02/12/17 Carbamazepine* (Tegretol Xr*) 200 Mg Tab.sr.12h, 200 MG PO TID, TAB.SA 02/12/17 EFE SWANSON PA-C Apr 30, 2017 11:41
== END | disposition home or self-care (01) ==
LOC: HKI 10:24
DX: M25.561 Pain in right knee (principal); Z09 Encounter for follow-up examination after completed treatment for conditions other than malignant neoplasm; Z96.651 Presence of right artificial knee joint
CPT/HCPCS: G0463